=== PATIENT | female | born 1945 | race Caucasian/White ===

== ENCOUNTER 2017-02-12 08:00 | Outpatient (RCR) | payer MEDICARE, MEDICAID ==
[2016-07-12 16:31] VITALS: BMI 28.8
--- NOTE | 2016-12-19 13:51 | CARDIAC REHAB PLAN OF CARE ---
Physician: Nevaeh KENDALL Patient is being seen: Jimmie Ramirez Medical Diagnosis: Stent x 2 Date of Initial Evaluation: 12/19/16 SHORT TERM GOALS Short Term Goals Due Date: 01/19/17 Short Term Goals: 71 year old female phase II patient comes to cardiac rehab after receiving two stents on 2016. Patient is a return cardiac rehab patient with a medical history that includes insulin dependent diabetic, a kidney disorder, previous right femoral popliteal bypass, bilateral leg claudication, "Claudication is pain and/or cramping in the lower leg due to inadequate blood flow to the muscles. The pain usually causes the person to limp. The word "claudication" comes from the Latin "claudicare" meaning to limp. Claudication typically is felt while walking, and subsides with rest." degenerative aortic valve stenosis, CVA (2012) with complete recovery, [place] (2008 ), CABG x 3 (2008), and the patient believes she has had a total of 5-6 stents placed counting the last two. Patient will begin a 36 visit phase II program with exercise of goals of 150 minutes per week of a moderate level (3.0-6.0 MET's) of cardio exercise and also include weight resistance type of exercise at least twice a week. Patient will also follow a healthy diet, with calorie control to allow for some weight loss. Patient is 4' 9 1/2" and 139 pounds, with a healthy BMI max weight at 120 pounds. Short Term Goals Met: Short Term Goals Not Met Due To: SKILLED NURSING GOALS Group Home Goal Due Date: 02/18/17 Central Sterile Technician Goals: FPC goals for patient are to maintain that consistency of cardio exercise each week, along with weight resistance exercise and healthy meals. Patient will work to improve endurance, duration, and strength during the phase II program. Central Sterile Technician Goals Met: Group Home Goals Not Met Due To: PATIENT'S GOALS Patient Goals Due Date: 01/19/17 Patient Goals: Patient goals are to lose weight, feel better, improve strength and have more energy. Patient Goals Met: Patient Goals Not Met Due To: Cardiac Rehabilitation Plan of Care Comment: Cardiac Rehab staff will monitor, record, and evaluate vitals, ECG, and exercise results to provide the best plan of care for the patient throughout the 36 visit phase program. CR staff will educate and motivate the patient during visits for rehab. ELEND
[2016-12-23 13:04] VITALS: BP 90/64
[2016-12-23 13:05] VITALS: BP 92/58
[2016-12-25 13:11] VITALS: BP 96/54
[2016-12-25 13:12] VITALS: BP 90/50
[2016-12-30 17:20] VITALS: BP 98/60
[2016-12-30 17:21] VITALS: BP 92/52
[2017-01-01 18:04] VITALS: BP 102/64
[2017-01-01 18:05] VITALS: BP 104/54
[2017-01-06 13:17] VITALS: BP 102/62
[2017-01-06 13:18] VITALS: BP 90/48
[2017-01-13 17:40] VITALS: BP 108/54
[2017-01-13 17:41] VITALS: BP 98/50
[2017-01-20 12:56] VITALS: BP 110/62
[2017-01-20 12:57] VITALS: BP 94/60
--- NOTE | 2017-01-21 13:30 | CARDIAC REHAB PLAN OF CARE ---
Physician: Nevaeh KENDALL Patient is being seen: Jimmie Ramirez Medical Diagnosis: Stent x 2 Date of Initial Evaluation: 12/23/2016 SHORT TERM GOALS Short Term Goals Due Date: 02/20/17 Short Term Goals: 71 year old female phase II patient comes to cardiac rehab after receiving two stents on 2016. Patient is a return cardiac rehab patient with a medical history that includes insulin dependent diabetic, a kidney disorder, previous right femoral popliteal bypass, bilateral leg claudication, "Claudication is pain and/or cramping in the lower leg due to inadequate blood flow to the muscles. The pain usually causes the person to limp. The word "claudication" comes from the Latin "claudicare" meaning to limp. Claudication typically is felt while walking, and subsides with rest." degenerative aortic valve stenosis, CVA (2012) with complete recovery, [place] (2008 ), CABG x 3 (2008), and the patient believes she has had a total of 5-6 stents placed counting the last two. Patient will begin a 36 visit phase II program with exercise of goals of 150 minutes per week of a moderate level (3.0-6.0 MET's) of cardio exercise and also include weight resistance type of exercise at least twice a week. Patient will also follow a healthy diet, with calorie control to allow for some weight loss. Patient is 4'9 1/2" and 139 pounds, with a healthy BMI max weight at 120 pounds. Short Term Goals Met: Patient has completed seven visits to cardiac rehab and tolerates 35 minutes on the NuStep, at a 2.5 MET level. During exercise SPO2 values remain in the 90's on room air and the classroom monitor shows a NSR without ectopy and heart rates up to 80's. Short Term Goals Not Met Due To: The first month of the phase II program and the patients number of visits has been sporatic and only 7 visits. The intensity level is only 2.5 METs and her heart level is at the low end of her target heart rate zone. COMMUNITY SUPPORT ASSOCIATE GOALS Guide Foreign Tour Goal Due Date: 03/23/17 Guide Foreign Tour Goals: detention goals for this patient are to increase that consistency of cardio exercise each week to achieve that goal of 150 minutes at a moderate level (3.0-6.0 METs). Guide Foreign Tour Goals Met: Patient will need to make visits for rehab more frequent and also improve intensity level to see better health improvements from exercise. Guide Foreign Tour Goals Not Met Due To: PATIENT'S GOALS Patient Goals Due Date: 02/20/17 Patient Goals: Patient goals remain to lose weight, improve health, and overall energy level. Patient Goals Met: Patient Goals Not Met Due To: Cardiac Rehabilitation Plan of Care Comment: Cardiac rehab staff will continue to monitor, record, and evaluate vitals, ECG, and exercise results to provide the best plan of care throughout the phase II program. CR staff will educate and motivate the patient during visits for rehab. GRETTA
[2017-01-22 13:09] VITALS: BP 110/64
[2017-01-22 13:10] VITALS: BP 98/56
[2017-01-24 17:42] VITALS: BP 104/60
[2017-01-24 17:43] VITALS: BP 102/56
[2017-01-27 17:23] VITALS: BP 110/64
[2017-01-27 17:24] VITALS: BP 110/64
[2017-02-03 12:55] VITALS: BP 112/60
[2017-02-03 12:56] VITALS: BP 102/58
[2017-02-05 13:03] VITALS: BP_SYST 100; BP_SYST 104; BP_DIAS 50; BP_DIAS 56
[2017-02-10 13:17] VITALS: BP 100/70
[2017-02-10 13:18] VITALS: BP 108/74
[~2017-02-12 08:00] MED LIST: ABX FOR UTI PO; ACE3 PO; ACE500 PO; ACET-1748 PO; ACET-1966 PO; AGGRENOX PO; AML5 PO; AMLO-96 PO; AMOX-556 PO; ASCO-440 PO; ASCO-504 PO; ASCO500C9 PO; ASPI-1471 PO; ASPI-715 PO; ASPI-764 PO; ATOR40TA24 PO; ATR80PT PO; B6; BACDS PO; BIS10S PR; CALC-734 PO; CALC500T6 PO; CAR3.125 PO; CEF300 PO; CEPH-13 PO; CEPH500C24 PO; CILO50TA PO; CIP500 PO; CIPR-212 PO; CIPR-344 PO; CIPR-345 PO; CLO75 PO; CLOP75TA PO; CLOP75TA43 PO; CRAN1000 PO; CYAN100T31 PO; CYAN250T15 PO; Cephalexin Monohydrate PO; Cyanocobalamin PO; DAR100 PO; DIA5 PO; DICY10CA62 PO; DIFLUCAN; DILT300C41 PO; DOCU-202 PO; DOCU100C49 PO; ELESTATPT OP; ELESTATPT OU; EZET1TAB61 PO; FAMO20TA28 PO; FERR160T25 PO; FERR256T PO; FERR55TA2 PO; FURO-45; FURO-45 PO; FURO-47 PO; GAB300 PO; GABA-1 PO; GABA-549 PO; GLI2 PO; GLIBURIDE PO; GLIP-137 PO; GLIP-152 PO; GLIP10TA26 PO; GLY25 PO; Glipizide PO; HYDR-2946 PO; HYDR-2966 PO; HYDR-4305 PO; HYDR-4309 PO; HYDR12.558 PO; INSU100C10 SQ; INSU100C14 SQ; INSU100I30 SUBQ; ISOS30TA51 PO; ISOS30TA71 PO; KET10 PO; LACT PO; LACT1CAP4 PO; LACT1CAP6 PO; LACT1TAB19; LANI SQ; LANI SUBQ; LEV500 PO; LEV75 PO; LEVO-85 PO; LEVO150T7 PO; LEVO50 PO; LEVO50TA80 PO; LEVO50TA86; LEVO75TA73 PO; LID5T TP; LISI-346 PO; LISI-362 PO; LISI5TAB25 PO; LOR5 PO; LOR5/325 PO; MEPE50TA29 PO; MET500 PO; METF-409 PO; METF-420 PO; METO-259 PO; METO-733 PO; METO25TA23 PO; METO50TA19 PO; MIR PO; MOM PO; NAP375 PO; NIT4 SL; NITR-105 PO; NITR-57 PO; NOR25 PO; NOR5/325 PO; OMEP40CA48 PO; ONDA4TAB PO; ONDA4TAB9 FT; OSEL75CA PO; OXYB10TA16 PO; OXYB10TA21 PO; OXYB5TAB86 PO; OXYC-865 PO; OXYC5TAB38 PO; PAN40 PO; PANT40TA63 PO; PANT40TA65 PO; PEN400 PO; PHEN-530 PO; PHEN200T32 PO; PHENA200 PO; PSYL0.5241 PO; PSYP PO; PYRI100T57 PO; RIV10 PO; ROPI0.5T25 PO; ROPI1TAB36 PO; SACC250C6; SIMV-42 PO; SIMV-54 PO; SITA100T PO; SOLI10TA8 PO; TRAM-420 PO; TRAZ-133 PO; TUM500 PO; UBIQ100C3 PO; VALS160T20 PO; WAR1 PO; WARF4TAB46 PO; XANAX; ZIN220 PO; ZINC50TA71 PO; [UNRECOGNIZED DRUG - CODE] PO; [UNRECOGNIZED DRUG - CODE] PO; [UNRECOGNIZED DRUG - CODE] PO; [UNRECOGNIZED DRUG - OTHER]; [UNRECOGNIZED DRUG - OTHER]; [UNRECOGNIZED DRUG - OTHER] TP
[2017-02-12 13:11] VITALS: BP 100/70
[2017-02-12 13:12] VITALS: BP 102/68
[2017-02-23] MEDS ORDERED: IPRA3AMP21 IH (13:22)
[2017-02-23] MEDS ORDERED: AZIT-18 PO (13:22)
[2017-02-23] MEDS ORDERED: PRED20TA6 PO (13:22)
--- NOTE | 2017-02-26 12:59 | CARDIAC REHAB PLAN OF CARE ---
Physician: Nevaeh KENDALL Patient is being seen: Jimmie Ramirez Medical Diagnosis: Stent x 2 Date of Initial Evaluation: 12/23/16 SHORT TERM GOALS Short Term Goals Due Date: 03/29/17 Short Term Goals: 71 year old female phase II patient comes to cardiac rehab after receiving two stents on 2016. Patient is a return cardiac rehab patient with a medical history that includes insulin dependent diabetic, a kidney disorder, previous right femoral popliteal bypass, bilateral leg claudication, "Claudication is pain and/or cramping in the lower leg due to inadequate blood flow to the muscles. The pain usually causes the person to limp. The word "claudication" comes from the Latin "claudicare" meaning to limp. Claudication typically is felt while walking, and subsides with rest." degenerative aortic valve stenosis, CVA (2012) with complete recovery, [place] (2008 ), CABG x 3 (2008), and the patient believes she has had a total of 5-6 stents placed counting the last two. Patient will begin a 36 visit phase II program with exercise of goals of 150 minutes per week of a moderate level (3.0-6.0 MET's) of cardio exercise and also include weight resistance type of exercise at least twice a week. Patient will also follow a healthy diet, with calorie control to allow for some weight loss. Patient is 4'9 1/2" and 139 pounds, with a healthy BMI max weight at 120 pounds. Short Term Goals Met: Patient has made 14 visits for cardiac rehab and tolerates 37 minutes on the NuStep at a 2.7 MET level, followed by weight resistance exercise with 2 pound dumbbells. Short Term Goals Not Met Due To: Inconsistent attendance, and small improvements in duration, but without any improvement in intensity. MET level remains at 2.7. LONG-TERM GOALS Esthetic Dermatologist Goal Due Date: 04/29/17 Esthetic Dermatologist Goals: shelter goals for this patient are to improve consistency of exercise and to achieve the minimum of 150 minutes of a moderate level of cardio exercise. Alf Goals Met: Patient has improved duration of exercise with 37 minutes, but the intensity level is below the minimum goal of 3.0 METs. Esthetic Dermatologist Goals Not Met Due To: Number of minutes each week of cardio exercise and is below the moderate level of intensity. PATIENT'S GOALS Patient Goals Due Date: 03/29/17 Patient Goals: Patient goals remain to improve health and remain active. Patient Goals Met: Patient Goals Not Met Due To: Cardiac Rehabilitation Plan of Care Comment: Cardiac rehab staff will continue to monitor, record, and evaluate vitals, ECG, and exercise results to provide the best plan of care for the patient during the 36 visit phase II program. CR staff will educate and motivate the patient during visits for rehab. GRETTA
== END 2017-03-19 ==
LOC: CARD 08:00
PROVIDERS: ATTEND Internal Medicine Cardiovascular Disease
DX: I25.2 Old myocardial infarction (principal); Z79.4 Long term (current) use of insulin; N28.9 Disorder of kidney and ureter, unspecified; I73.9 Peripheral vascular disease, unspecified; I35.0 Nonrheumatic aortic (valve) stenosis; Z86.73 Personal history of transient ischemic attack (TIA), and cerebral infarction without residual deficits; Z95.5 Presence of coronary angioplasty implant and graft; E11.9 Type 2 diabetes mellitus without complications
CPT/HCPCS: 93798

== ENCOUNTER 2017-05-12 08:49 | Observation (INO) | payer MEDICARE, MEDICAID ==
[~2017-05-12] VITALS: Ht 144.8 cm; Wt 63.0 kg
[~2017-05-12 08:49] MED LIST changes: +AZIT-18 PO; +IPRA3AMP21 IH; -LEVO50TA86; +LEVO50TA86 PO; +PRED20TA6 PO
--- NOTE | 2017-05-12 08:59 | ER Report ---
History and Physical Time Seen By MD: 08:58 Hx. of Stated Complaint: DEVELOPED 9/10 CHEST PAIN WHILE EXERTING AT CARDIO REHAB. REPORTS THAT PAIN HAS SUBSIDED WHILE AT REST. HPI/ROS CHIEF COMPLAINT: Chest pain HISTORY OF PRESENT ILLNESS: 71-year-old female with stents placed in March of this year number equals 2, triple bypass in 2008, known angina and uses nitroglycerin at home for her angina, presents with chest pain onset during exertion while at cardiac rehabilitation Center that resolved after exertion stopped. No pain at this time while at rest. Pain was sharp left-sided pleuritic nonradiating and did not migrate. She reports no associated symptoms. She denies diaphoresis shortness of breath and nausea. No abdominal pain. She did not take nitroglycerin for the pain today. She reports a history of prior blood clots. REVIEW OF SYSTEMS: Constitutional: No fever, no chills. Eyes: No discharge. ENT: No sore throat. Cardiovascular: no palpitations. Respiratory: No cough, no shortness of breath. Gastrointestinal: No abdominal pain, no vomiting. Genitourinary: No hematuria. Musculoskeletal: No back pain. Skin: No rashes. Neurological: No headache. Allergies: Coded Allergies: fluoxetine (Verified Allergy, Mild, 05/12/17) sulfamethoxazole (Verified Adverse Reaction, Severe, PT STATES AFFECTED KIDNEYS, 05/12/17) trimethoprim (Verified Adverse Reaction, Severe, PT STATES AFFECTED KIDNEYS, 05/12/17) ertapenem (Verified Adverse Reaction, Intermediate, 05/12/17) messed with my liver and made me really sick oxycodone (Verified Adverse Reaction, Mild, FEELS REAL WEIRD, 05/12/17) Home Meds Active Scripts Ipratropium/Albuterol Sulfate (IPRAT-ALBUT 0.5-3(2.5) MG/3 ML) 3 Ml Ampul.neb, 3 ML IH QID Y for prn, #1 BOX Prov:ANTHONY TOM PA-C 02/23/17 Insulin Aspart (NOVOLOG) 100 Unit/1 Ml Cartridge, 3 UNIT SQ ACHS for 30 Days, Prov:JAQUELIN BRITO MD 07/13/16 Insulin Glargine (LANTUS) 100 Unit/Ml Soln, 15 UNIT SUBQ QDAY for 30 Days, Prov:JAQUELIN BRITO MD 07/13/16 Reported Medications Metoprolol Succinate (METOPROLOL SUCCINATE) 50 Mg Tab.er.24h, 1 TAB PO QDAY, TAB 07/11/16 Levothyroxine Sodium (LEVOTHYROXINE SODIUM) 50 Mcg Tablet, #30 07/11/16 Ascorbic Acid (VITAMIN C) 1,000 Mg Tab.chew, 1000 MG PO TID, TAB.CHEW 07/11/16 Cilostazol (CILOSTAZOL) 50 Mg Tablet, 50 MG PO BID 07/11/16 Pentoxifylline (PENTOXIFYLLINE) 400 Mg Tabsr, 400 MG PO TID 05/05/16 Sitagliptin Phosphate (JANUVIA) 100 Mg Tablet, 100 MG PO QDAY 05/05/16 Pantoprazole Sodium (PANTOPRAZOLE SODIUM) 40 Mg Tablet.dr, 40 MG PO QDAY, TAB.SR 04/11/15 Atorvastatin Calcium (LIPITOR) 40 Mg Tablet, 1 TAB PO QDAY, TAB 04/11/15 Lisinopril (LISINOPRIL) 5 Mg Tablet, 5 MG PO QDAY, TAB 04/11/15 Clopidogrel Bisulfate (PLAVIX) 75 Mg Tablet, 1 TAB PO QDAY TAKE ONE TABLET BY MOUTH EVERY DAY 07/13/14 Aspirin (ASPIR 81) 81 Mg Tablet.dr, 81 MG PO QDAY, TAB 07/13/14 Discontinued Scripts Prednisone (PREDNISONE) 20 Mg Tablet, 20 MG PO BID, #10 TAB Prov:ANTHONY TOM PA-C 02/23/17 Azithromycin 250 Mg Tab (AZITHROMYCIN 250 MG TAB) 250 Mg Tablet, 1 TAB PO QDAY, #6 TAB Take 2 tabs today and then 1 tab a day until gone. Prov:ANTHONY TOM PA-C 02/23/17 Hx Smoking: No Smoking Status: Former Smoker Exposure to Second Hand Smoke?: No Hx Substance Use Disorder: No Hx Alcohol Use: No Constitutional Vital Sign - Last 24 Hours 05/12/17 05/12/17 05/12/17 05/12/17 08:53 09:00 09:30 10:00 Temp 97.9 Pulse 69 56 Resp 16 16 13 B/P (MAP) 168/92 165/80 (108) 167/67 (100) 153/86 (108) Pulse Ox 91 91 94 O2 Delivery Room Air Physical Exam General Appearance: The patient is alert, has no immediate need for airway protection and no signs of toxicity. No acute distress no diaphoresis Eyes: Pupils equal and round no pallor or injection. ENT, Mouth: Mucous membranes are moist. Respiratory: There are no retractions, lungs are clear to auscultation. Cardiovascular: Regular rate and rhythm. No murmurs gallops or rubs Gastrointestinal: Abdomen is soft and non tender, no masses, bowel sounds normal. Neurological: Normal Skin: Warm and dry, no rashes. Musculoskeletal: Neck is supple non tender. Extremities are nontender, nonswollen and have full range of motion. No edema DIFFERENTIAL DIAGNOSIS: After history and physical exam differential diagnosis was considered for ACS, PE, angina, unstable angina, pleurisy, pneumonia, aortic dissection, aortic aneurysm. This is an incomplete list of diagnoses considered Medical Decision Making Data Points Result Diagram: 05/12/17 0900 05/12/17 0900 Laboratory Hematology Test 05/12/17 09:00 Red Blood Count 4.73 M/uL (4.17-5.56) Mean Corpuscular Volume 91.8 fL (80.0-96.0) Mean Corpuscular Hemoglobin 31.5 pg (26.0-33.0) Mean Corpuscular Hemoglobin Concent 34.4 g/dL (32.0-36.0) Red Cell Distribution Width 15.0 % (11.5-14.5) Mean Platelet Volume 7.2 fL (7.2-11.1) Neutrophils (%) (Auto) 63.3 % (39.4-72.5) Lymphocytes (%) (Auto) 26.0 % (17.6-49.6) Monocytes (%) (Auto) 8.0 % (4.1-12.4) Eosinophils (%) (Auto) 2.1 % (0.4-6.7) Basophils (%) (Auto) 0.6 % (0.3-1.4) Nucleated RBC Relative Count (auto) 0.0 /100WBC Neutrophils # (Auto) 5.2 K/uL (2.0-7.4) Lymphocytes # (Auto) 2.2 K/uL (1.3-3.6) Monocytes # (Auto) 0.7 K/uL (0.3-1.0) Eosinophils # (Auto) 0.2 K/uL (0.0-0.5) Basophils # (Auto) 0.1 K/uL (0.0-0.1) Nucleated RBC Absolute Count (auto) 0.00 K/uL Sodium Level 138 mmol/L (137-145) Potassium Level 4.1 mmol/L (3.5-5.0) Chloride Level 104 mmol/L (98-107) Carbon Dioxide Level 22 mmol/L (22-31) Blood Urea Nitrogen 32 mg/dl (7-18) Creatinine 1.20 mg/dl (0.52-1.04) Glomerular Filtration Rate Calc 44.2 Random Glucose 231 mg/dl (75-110) Calcium Level 9.5 mg/dl (8.4-10.2) Total Bilirubin 0.7 mg/dl (0.2-1.3) Aspartate Amino Transf (AST/SGOT) 29 U/L (0-35) Alanine Aminotransferase (ALT/SGPT) 37 U/L (0-56) Alkaline Phosphatase 118 U/L (0-126) Troponin I 0.026 ng/ml B-Type Natriuretic Peptide 49 pg/ml (0-100) Total Protein 7.5 gm/dl (6.3-8.2) Albumin 4.1 g/dl (3.5-5.0) Chemistry Test 05/12/17 09:00 White Blood Count 8.3 k/uL (4.5-11.0) Red Blood Count 4.73 M/uL (4.17-5.56) Hemoglobin 14.9 g/dL (12.0-16.0) Hematocrit 43.4 % (34.0-47.0) Mean Corpuscular Volume 91.8 fL (80.0-96.0) Mean Corpuscular Hemoglobin 31.5 pg (26.0-33.0) Mean Corpuscular Hemoglobin Concent 34.4 g/dL (32.0-36.0) Red Cell Distribution Width 15.0 % (11.5-14.5) Platelet Count 218 K/uL (150-450) Mean Platelet Volume 7.2 fL (7.2-11.1) Neutrophils (%) (Auto) 63.3 % (39.4-72.5) Lymphocytes (%) (Auto) 26.0 % (17.6-49.6) Monocytes (%) (Auto) 8.0 % (4.1-12.4) Eosinophils (%) (Auto) 2.1 % (0.4-6.7) Basophils (%) (Auto) 0.6 % (0.3-1.4) Nucleated RBC Relative Count (auto) 0.0 /100WBC Neutrophils # (Auto) 5.2 K/uL (2.0-7.4) Lymphocytes # (Auto) 2.2 K/uL (1.3-3.6) Monocytes # (Auto) 0.7 K/uL (0.3-1.0) Eosinophils # (Auto) 0.2 K/uL (0.0-0.5) Basophils # (Auto) 0.1 K/uL (0.0-0.1) Nucleated RBC Absolute Count (auto) 0.00 K/uL Glomerular Filtration Rate Calc 44.2 Calcium Level 9.5 mg/dl (8.4-10.2) Total Bilirubin 0.7 mg/dl (0.2-1.3) Aspartate Amino Transf (AST/SGOT) 29 U/L (0-35) Alanine Aminotransferase (ALT/SGPT) 37 U/L (0-56) Alkaline Phosphatase 118 U/L (0-126) Troponin I 0.026 ng/ml B-Type Natriuretic Peptide 49 pg/ml (0-100) Total Protein 7.5 gm/dl (6.3-8.2) Albumin 4.1 g/dl (3.5-5.0) EKG/Imaging EKG Interpretation 05/12/2017 8:53 AM: EKG my read sinus bradycardia with sinus arrhythmia ventricular rate of 58 normal MS QRS and QTc intervals T-wave inversion 1 in aVL is seen on prior EKG and appears similar dated 02/23/2017 at 1300. ED Course/Re-evaluation ED Course Discussed with Dr. Yarbrough who agrees with plan for admission. No chest pain at this time 05/12/2017 11:22:22 am Decision to Disposition Date: May 12, 2017 Decision to Disposition Time: 11:22 Depart Departure Latest Vital Signs Vital Signs Date Time Temp Pulse Resp B/P (MAP) Pulse Ox O2 Delivery O2 Flow Rate FiO2 05/12/17 10:00 153/86 (108) 05/12/17 09:30 56 13 94 05/12/17 08:53 97.9 Room Air Impression: Primary Impression: Chest pain, exertional Condition: Improved Disposition: Admitted from ER Referrals: CHANDRIKA ZUNIGA DO (PCP) YVES HUTCHINS MD May 12, 2017 08:59
[2017-05-12] MEDS ORDERED: ASPIRIN 81 MG CHEW PO ONE (09:00)
--- NOTE | 2017-05-12 09:03 | EKG ---
FACILITY: [facility] PATIENT NAME: LLOYD NEWTON : [id number] MR: [id number] V: [id number] EXAM DATE: ORDERING PHYSICIAN: YVES HUTCHINS TECHNOLOGIST: JORDAN Jj Reason : CHEST PRESSURE Blood Pressure : / mmHG Vent. Rate : 058 BPM Atrial Rate : 058 BPM P-R Int : 144 ms QRS Dur : 074 ms QT Int : 454 ms P-R-T Axes : 043 010 142 degrees QTc Int : 445 ms Sinus bradycardia with sinus arrhythmia Cannot rule out Anterior infarct , age undetermined ST and T wave abnormality, consider lateral ischemia Abnormal ECG When compared with ECG of 23-FEB-2017 13:00, No significant change was found Confirmed by NAVDEEP NAM ([id number]) on 05/13/2017 4:07:50 AM Referred By: LISET Confirmed By:NAVDEEP NAM
[2017-05-12 09:10] LABS: PLATELET COUNT, AUTOMATED 218 K/uL (150-450)
--- NOTE | 2017-05-12 09:39 | RADIOLOGY IMAGING REPORT ---
FACILITY: [facility] PATIENT NAME: Donna Arreola : 1945 MR: [id number] V: [id number] EXAM DATE: ORDERING PHYSICIAN: YVES HUTCHINS TECHNOLOGIST: Location: [facility] Patient: Donna Arreola : 1945 Visit/Account:[id number] Date of Sevice: 05/12/2017 Exam type: CHEST SINGLE AP History: wheezing, dyspnea; for edema pain in left chest Comparison: February 23, 2017. Findings: The lungs are free of acute effusions, infiltrates or edema. There is no evidence of pneumothorax or pneumomediastinum. The cardiac silhouette is normal in size. IMPRESSION: 1. No acute cardiopulmonary process seen Report Dictated By: Jane Ochoa MD at 05/12/2017 9:32 AM Report E-Signed By: Jane Ochoa MD at 05/12/2017 9:34 AM WSN:JOSE GUADALUPE
[2017-05-12 12:25] VITALS: BP 177/74
[2017-05-12] MEDS ORDERED: ISOS30TA54 PO (12:49)
[2017-05-12] MEDS ORDERED: LEVO75TA73 PO (12:49)
--- NOTE | 2017-05-12 12:59 | History & Physical ---
History of Present Illness Chief Complaint Chest pain History of Present Illness She presented to the emergency room after experiencing chest pain at cardiac rehab. Her pain started with exercise and was relieved by rest. She has a history of coronary artery disease, with stents placed in March. History Problems: (1) CAD (coronary artery disease) Status: Chronic (2) HTN (hypertension) Status: Chronic (3) Type II diabetes mellitus Status: Chronic (4) Hypothyroid Status: Chronic (5) CKD (chronic kidney disease) Status: Chronic (6) Peripheral vascular disease due to secondary diabetes Status: Chronic (7) Hx of CABG Status: Chronic (8) S/P femoral-popliteal bypass surgery Status: Chronic Home Meds Active Scripts Ipratropium/Albuterol Sulfate (IPRAT-ALBUT 0.5-3(2.5) MG/3 ML) 3 Ml Ampul.neb, 3 ML IH QID Y for prn, #1 BOX Prov:ANTHONY TOM PA-C 02/23/17 Insulin Aspart (NOVOLOG) 100 Unit/1 Ml Cartridge, 3 UNIT SQ ACHS for 30 Days, Prov:JAQUELIN BRITO MD 07/13/16 Insulin Glargine (LANTUS) 100 Unit/Ml Soln, 15 UNIT SUBQ QDAY for 30 Days, Prov:JAQUELIN BRITO MD 07/13/16 Reported Medications Metoprolol Succinate (METOPROLOL SUCCINATE) 50 Mg Tab.er.24h, 1 TAB PO QDAY, TAB 07/11/16 Levothyroxine Sodium (LEVOTHYROXINE SODIUM) 50 Mcg Tablet, #30 07/11/16 Ascorbic Acid (VITAMIN C) 1,000 Mg Tab.chew, 1000 MG PO TID, TAB.CHEW 07/11/16 Cilostazol (CILOSTAZOL) 50 Mg Tablet, 50 MG PO BID 07/11/16 Pentoxifylline (PENTOXIFYLLINE) 400 Mg Tabsr, 400 MG PO TID 05/05/16 Sitagliptin Phosphate (JANUVIA) 100 Mg Tablet, 100 MG PO QDAY 05/05/16 Pantoprazole Sodium (PANTOPRAZOLE SODIUM) 40 Mg Tablet.dr, 40 MG PO QDAY, TAB.SR 04/11/15 Atorvastatin Calcium (LIPITOR) 40 Mg Tablet, 1 TAB PO QDAY, TAB 04/11/15 Lisinopril (LISINOPRIL) 5 Mg Tablet, 5 MG PO QDAY, TAB 04/11/15 Clopidogrel Bisulfate (PLAVIX) 75 Mg Tablet, 1 TAB PO QDAY TAKE ONE TABLET BY MOUTH EVERY DAY 07/13/14 Aspirin (ASPIR 81) 81 Mg Tablet.dr, 81 MG PO QDAY, TAB 07/13/14 Discontinued Scripts Prednisone (PREDNISONE) 20 Mg Tablet, 20 MG PO BID, #10 TAB Prov:ANTHONY TOM PA-C 02/23/17 Azithromycin 250 Mg Tab (AZITHROMYCIN 250 MG TAB) 250 Mg Tablet, 1 TAB PO QDAY, #6 TAB Take 2 tabs today and then 1 tab a day until gone. Prov:ANTHONY TOM PA-C 02/23/17 Allergies: Coded Allergies: fluoxetine (Verified Allergy, Mild, 05/12/17) sulfamethoxazole (Verified Adverse Reaction, Severe, PT STATES AFFECTED KIDNEYS, 05/12/17) trimethoprim (Verified Adverse Reaction, Severe, PT STATES AFFECTED KIDNEYS, 05/12/17) ertapenem (Verified Adverse Reaction, Intermediate, 05/12/17) messed with my liver and made me really sick oxycodone (Verified Adverse Reaction, Mild, FEELS REAL WEIRD, 05/12/17) Patient History: Diabetes mellitus in brother BROTHER OR SISTER Diabetes mellitus in mother MOTHER, Diabetes mellitus in sister BROTHER OR SISTER FH: PR (myocardial infarction) BROTHER OR SISTER FH: seizures FATHER, FHx: cancer of ovary BROTHER OR SISTER PR (myocardial infarction) BROTHER OR SISTER Hx Smoking: No Smoking Status: Former Smoker Exposure to Second Hand Smoke?: No Caffeine Intake: Coffee, Tea Caffeine/Cups Per Day: 1 Hx Alcohol Use: No Hx Substance Use Disorder: No Social Drug Use: Never Review of Systems All Systems Reviewed/Normal: Yes, Except as Noted Cardiovascular: Chest Pain Exam Vital Signs Vital Signs Date Time Temp Pulse Resp B/P (MAP) Pulse Ox O2 Delivery O2 Flow Rate FiO2 05/12/17 12:25 97.6 51 16 177/74 (108) 91 Room Air General Appearance: Alert, Awake, No Acute Distress, Afebrile Cardiovascular: Regular Rate and Rhythm Respiratory: No Respiratory Distress Extremities: No Edema Psych: Alert & Oriented X3, Appropriate Mood & Affect Medical Decision Making Data Points Result Diagram: 05/12/17 0900 05/12/17 0900 Item Value Date Time Troponin I 0.026 ng/ml 05/12/17 0900 EKG / Imaging EKG Interpretation Ekg Reviewed. Imaging Chest X-ray Reviewed Assessment and Plan Problems: (1) Chest pain Status: Acute Assessment & Plan: She did present with exertional chest pain that relieved spontaneously with rest. Her EKG showed T wave changes in the lateral leads, but her initial troponin was negative. She did receive an aspirin in the emergency room. We will perform serial troponin monitoring. (2) CAD (coronary artery disease) Status: Chronic Assessment & Plan: She had stents placed in March. Her multiple knife edge trimmer operator is Dr Schaffer. She is on chronic treatment with Atorvastatin, Aspirin, Plavix, Metoprolol, and Nitro. (3) Type II diabetes mellitus Status: Chronic Assessment & Plan: She is on chronic treatment with Lantus, Januvia, Novolog. (4) Hypothyroid Status: Chronic Assessment & Plan: She is on rotating dose of Levothyroxine 50 and 75 mcg. Copies to: CHANDRIKA ZUNIGA DO; RK SCHAFFER MD Venous Thromboembolism Antithrombotics Is Pt On Any Antithrombotics?: No Heart Failure Ejection Fraction %: 65 NYHA Class: I Is Patient on CUATE Inhibitor?: Yes Is Patient on Beta Edgar?: No Admission Weight: 125 Exam Sepsis Risk: No Definite Risk NAVDEEP NAM DO May 12, 2017 12:59
[2017-05-12] MEDS ORDERED: INSU100C14 SQ (13:13)
[2017-05-12] MEDS: CLOPIDOGREL BISULFATE 75MG TAB PO SCH (13:38)
[2017-05-12] MEDS: METOPROLOL SUCC XL 50 MG TABCR 50 MG TAB.ER.24H PO SCH (13:39)
[2017-05-12] MEDS: ISOSORBIDE MONONITR 30MG TABCR PO SCH (13:39)
[2017-05-12] MEDS: INSULIN HUM LISPRO 100 UN/ML 3 ML VIAL SUBQ PRN (17:19)
[2017-05-12] MEDS: INSULIN ASPART 100 U/ML 3 ML PEN SUBQ SCH (17:19)
[2017-05-12 18:48] VITALS: BP 144/53
[2017-05-12] MEDS: CILOSTAZOL 100 MG TAB PO SCH (21:18)
[2017-05-12 23:02] VITALS: BP 146/49
[2017-05-13] VITALS (7 sets, daily range): BP systolic 101–147; BP diastolic 37–73; Ht 144.8 cm; Wt 63.0 kg
[2017-05-13] MEDS: INSULIN ASPART 100 U/ML 3 ML PEN SUBQ SCH ×3 (08:12→17:08)
[2017-05-13] MEDS: INSULIN HUM LISPRO 100 UN/ML 3 ML VIAL SUBQ PRN ×2 (08:12→17:09)
[2017-05-13] MEDS: METOPROLOL SUCC XL 50 MG TABCR 50 MG TAB.ER.24H PO SCH (09:00)
[2017-05-13] MEDS: CLOPIDOGREL BISULFATE 75MG TAB PO SCH (09:12)
[2017-05-13] MEDS: ISOSORBIDE MONONITR 30MG TABCR PO SCH (09:12)
[2017-05-13] MEDS: ATORVASTATIN 40 MG TAB PO SCH (09:13)
[2017-05-13] MEDS: ASPIRIN 81 MG ENTERIC COATED PO SCH (09:13)
[2017-05-13] MEDS: CILOSTAZOL 100 MG TAB PO SCH ×2 (09:14→21:09)
[2017-05-13] MEDS: INSULIN GLARGINE 100 U/ML 3 ML PEN SUBQ SCH (09:14)
--- NOTE | 2017-05-13 11:50 | RADIOLOGY IMAGING REPORT ---
FACILITY: [facility] [place] PATIENT NAME: Donna Arreola : 1945 MR: [id number] V: [id number] EXAM DATE: ORDERING PHYSICIAN: JAQUELIN BRITO TECHNOLOGIST: Location: [facility] [place] Patient: Donna Arreola : 1945 Visit/Account:[id number] Date of Sevice: 05/13/2017 ABDOMEN/PELVIS W/O CONTRAST HISTORY: RLQ pain TECHNIQUE: Axial images acquired through the abdomen/pelvis. Coronal and sagittal reformatting also performed. No IV contrast administered. Dose Lowering Technique One of the following dose optimization techniques was utilized in the performance of this exam: Autom ated exposure control; adjustment of the mA and/or kV according to the patient's size; or use of an i terative reconstruction technique. Specific details can be referenced in the facility's radiology C T exam operational policy. COMPARISON: December 24, 2015 FINDINGS: Visualized lung bases: Negative. Hepatobiliary: Negative. Spleen: Negative. Adrenals: Negative. Pancreas: Atrophic pancreas. Mild calcifications are identified in the pancreatic head and tail Kidneys and bladder: Multiple calcifications are seen within the kidneys. Many of these appear to be vascular in etiology several may represent nonobstructing calculi although there is no evidence of h ydronephrosis or hydroureter. Bladder wall appears mildly thickened although may be related to under distention with urine. Genitalia: Hysterectomy GI: No evidence of bowel obstruction or bowel wall thickening . The appendix is not definitively s een although no inflammatory changes identified in the right lower quadrant Vessels/spaces/nodes: Severe vascular calcifications are again seen throughout the abdomen and pelvi s. Stents in the external iliac arteries and common femoral arteries again noted there also appears to be a stent in the proximal right renal artery Bones/soft tissues: There Is a dextroconvex scoliosis lumbar spine with extensive multilevel spondyl otic changes. Additional findings: None pertinent. IMPRESSION: Mild calcination occasions are identified in the pancreatic head and tail in the otherwise atrophic p ancreas possibly related to prior pancreatitis Multiple small calcination occasions within the kidneys. Many of these appear to be vascular in etio logy although several may represent nonobstructing calculi. The appendix is not definitively seen although no inflammatory change identified in the right lower q uadrant There are severe vascular calcifications throughout the abdomen and pelvis Dextro convex scoliosis lumbar spine with extensive multilevel spondylotic changes Report Dictated By: Jane Ochoa MD at 05/13/2017 11:16 AM Report E-Signed By: Jane Ochoa MD at 05/13/2017 11:46 AM WSN:[email or web address]
--- NOTE | 2017-05-13 11:58 | Hospitalist Progress Note ---
Subjective Progress Notes Subjective No further chest pain. However, she is reporting right groin pain that is intermittent. It lasts only a few seconds, but has been occurring frequently starting last night into today. It is 10/10 when it hits. She has had it over the last couple of months, but not this frequently or severe. Physical Exam Vital Signs Date Time Temp Pulse Resp B/P (MAP) Pulse Ox O2 Delivery O2 Flow Rate FiO2 05/13/17 11:15 97.9 63 16 138/58 (84) 92 Room Air 05/13/17 03:45 2.0 Intake and Output 05/14/17 07:00 Intake Total 440 ml Balance 440 ml Intake Oral 440 ml # Voids 1 General Appearance: Alert, Awake, No Acute Distress Cardiovascular: Regular Rate and Rhythm Respiratory: Clear to Auscultation GI: Other (R inguinal area without discoloration or bulging. She is non- tender. There is an old scar from a hernia surgery. No bulging felt with valsalva.) Result Diagram: 05/12/17 0900 05/12/17 0900 Assessment and Plan Problems: (1) Chest pain Status: Acute Assessment & Plan: She did present with exertional chest pain that relieved spontaneously with rest. No further pain. Her EKG showed T wave abnormalities in the lateral leads which is chronic, and her troponins are negative. She did receive an aspirin in the emergency room. Dr. Tafoya saw the patient and would like her to have a Lexiscan nuclear study. Will get done tomorrow. If there are significant abnormalities, then she will need a heart catheterization. (2) Right inguinal pain Status: Acute Assessment & Plan: Etiology is unclear. It lasts a few seconds. Benign exam. She does have a h/o right inguinal hernia repair. Will get a CT to evaluate. (3) CAD (coronary artery disease) Status: Chronic Assessment & Plan: She had stents placed, most recently, in March. Her pulling machine operator is Dr Tafoya. She is on chronic treatment with Atorvastatin, Aspirin, Plavix, Metoprolol, and Nitro. (4) Type II diabetes mellitus Status: Chronic Assessment & Plan: She is on chronic treatment with Lantus, Januvia, Novolog. (5) Hypothyroid Status: Chronic Assessment & Plan: She is on rotating dose of Levothyroxine 50 and 75 mcg. Heart Failure Ejection Fraction %: 65 NYHA Class: I Is Patient on CUATE Inhibitor?: Yes Is Patient on Beta Edgar?: No Admission Weight: 125 Exam Sepsis Risk: No Definite Risk JAQUELIN BRITO MD May 13, 2017 11:58
[2017-05-13] MEDS ORDERED: INFLUENZA VIRUS VAC 0.5 ML SYR IM ONLY ONE (13:00)
[2017-05-14] VITALS (8 sets, daily range): BP systolic 118–167; BP diastolic 51–109
[2017-05-14] MEDS ORDERED: REGADENOSON 0.4 MG/5 ML SYR ONE (07:07)
[2017-05-14] MEDS: INSULIN ASPART 100 U/ML 3 ML PEN SUBQ SCH ×3 (07:34→16:26)
[2017-05-14] MEDS: INSULIN HUM LISPRO 100 UN/ML 3 ML VIAL SUBQ PRN ×4 (07:34→20:35)
[2017-05-14] MEDS: ISOSORBIDE MONONITR 30MG TABCR PO SCH (10:43)
[2017-05-14] MEDS: CLOPIDOGREL BISULFATE 75MG TAB PO SCH (10:43)
[2017-05-14] MEDS: CILOSTAZOL 100 MG TAB PO SCH ×2 (10:44→20:32)
[2017-05-14] MEDS: METOPROLOL SUCC XL 50 MG TABCR 50 MG TAB.ER.24H PO SCH (10:44)
[2017-05-14] MEDS: ATORVASTATIN 40 MG TAB PO SCH (10:44)
[2017-05-14] MEDS: ASPIRIN 81 MG ENTERIC COATED PO SCH (10:44)
[2017-05-14] MEDS: INSULIN GLARGINE 100 U/ML 3 ML PEN SUBQ SCH (10:45)
--- NOTE | 2017-05-14 17:04 | RADIOLOGY IMAGING REPORT ---
FACILITY: PATIENT NAME: Donna Arreola : 1945 MR: [id number] V: [id number] EXAM DATE: ORDERING PHYSICIAN: JAQUELIN BRITO TECHNOLOGIST: Location: [facility] Patient: Donna Arreola : 1945 Visit/Account:[id number] Date of Sevice: 05/14/2017 EXAMINATION: Single isotope SPECT imaging with regadenoson infusion and gated SPECT imaging. DATE OF EXAMINATION: 05/14/2017. DATE OF INTERPRETATION: 05/14/2017. REQUESTING PHYSICIAN: JAQUELIN BRTIO. INDICATION: The patient is a 71-year-old female evaluated for chest pain, history of coronary artery disease with prior CABG. PROCEDURE: After informed consent the patient received an intravenous injection of 11.8 mCi of Tc-99 m sestamibi followed at an appropriate time interval by rest imaging. The patient then subsequently received an intravenous infusion of 0.4 mg of regadenoson per protocol without complication. Resting heart rate was 60 bpm with a peak heart rate of 81 bpm. Blood pressure at rest was 123 / 98 and fol lowing infusion was 139 / 67. Baseline EKG demonstrates normal sinus rhythm with diffuse T-wave inve rsion. There were no EKG changes of ischemia following infusion. Symptoms were nonspecific. The pa tient then received an intravenous injection of 30.6 mCi of Tc-99m sestamibi followed by stress imagi ng. RAW DATA: Examination of the summed raw data revealed a adequate quality study. MYOCARDIAL PERFUSION: The tomographic images demonstrate normal myocardial perfusion tracer uptake a t rest. There is a moderate-sized, severe intensity defect in the lateral wall on stress and prone im aging consistent with lateral ischemia transient ischemic dilation present with a ratio of 1.39. GATED IMAGES: The gated images demonstrate EF 64%. The lateral wall is mildly hypokinetic IMPRESSION: 1. Nondiagnostic pharmacologic stress ECG 2. Abnormal myocardial perfusion scan with a moderate area of ischemia in the circumflex territory 3. Preserved LV systolic function; LVEF 64%. The lateral wall is mildly hypokinetic 4. Based on the results of this exam, the patient appears to be at intermediate risk for future cardi ovascular events. 5. Results given to the nursing security supervisor, Genny, at [facility]. She will pass on t o on-call hospitalist. Report Dictated By: López Collins at 05/14/2017 4:08 PM Report E-Signed By: López Collins at 05/14/2017 4:24 PM WSN:[id number]
--- NOTE | 2017-05-14 17:39 | Hospitalist Progress Note ---
Subjective Progress Notes Subjective She reports doing well at rest. She does have dyspnea with exertion. No CP at this time. Physical Exam Vital Signs Date Time Temp Pulse Resp B/P (MAP) Pulse Ox O2 Delivery O2 Flow Rate FiO2 05/14/17 16:16 164/69 (100) 05/14/17 16:08 98.1 67 18 93 Room Air 05/13/17 03:45 2.0 Intake and Output 05/15/17 07:00 Intake Total 360 ml Balance 360 ml Intake Oral 360 ml # Voids 3 General Appearance: Alert, Awake Cardiovascular: Regular Rate and Rhythm Respiratory: Clear to Auscultation Chest: No Tenderness GI: Soft and Non-Tender Psych: Alert & Oriented X3 Result Diagram: 05/12/17 0900 05/12/17 0900 Assessment and Plan Problems: (1) Chest pain Status: Acute Assessment & Plan: She did present with exertional chest pain that relieved spontaneously with rest. MADRIGAL, but no further pain. Her EKG showed T wave abnormalities in the lateral leads which is chronic. Her troponins are negative. She did receive an aspirin in the emergency room. Dr. Tafoya saw the patient and recommended she have a Lexiscan nuclear study. We were able to get this done and she has an ischemic zone in the left circumflex area. I was able to discuss this with Dr. Tafoya again and he recommended she have a heart catheterization. Arrangements will be made for transport via ambulance to [facility] (Dr. Aureliano middleton). She would not be able to tolerate the ambulation necessary for DC from [facility] and personal transport to [facility]. (2) CAD (coronary artery disease) Status: Chronic Assessment & Plan: Her bulk filler is Dr. Wm Tafoya. She has had several interventions in the past. She has been on chronic treatment with Atorvastatin, Aspirin, Plavix, Metoprolol, and Nitrate. (3) Right inguinal pain Status: Acute Assessment & Plan: Etiology is unclear. It lasts a few seconds. Benign exam. She does have a h/o right inguinal hernia repair. CT of abdomen and pelvis was unremarkable for a cause of the groin pain. (4) Type II diabetes mellitus Status: Chronic Assessment & Plan: She is on chronic treatment with Lantus, Januvia, Novolog. (5) Hypothyroid Status: Chronic Assessment & Plan: She is on an alternating dose of Levothyroxine 50 and 75 mcg. Heart Failure Ejection Fraction %: 65 NYHA Class: I Is Patient on CUATE Inhibitor?: Yes Is Patient on Beta Edgar?: No Admission Weight: 125 Exam Sepsis Risk: No Definite Risk HITESH DING MD May 14, 2017 17:39
[2017-05-15 00:22] VITALS: BP 105/55
[2017-05-15 03:22] VITALS: BP 132/51
[2017-05-15 07:00] VITALS: BP 154/61
[2017-05-15] MEDS: INSULIN ASPART 100 U/ML 3 ML PEN SUBQ SCH (07:30)
--- NOTE | 2017-05-15 07:48 | Hospitalist Depart ---
Discharge Summary Reason for Hosp/Final Diag: (1) Chest pain Status: Acute Hospital Course & Plan: She did present with exertional chest pain that relieved spontaneously with rest. She continued to have MADRIGAL, but no further pain. Her EKG showed T wave abnormalities in the lateral leads which is chronic. Her troponins are negative. She did receive an aspirin in the emergency room. Dr. Tafoya saw the patient and recommended she have a Lexiscan nuclear study. We were able to get this done and she has an ischemic zone in the left circumflex area. I was able to discuss this with Dr. Tafoya again and he recommended she have a heart catheterization. Arrangements were made for transport via ambulance to [facility] (Dr. Aureliano middleton). She would not be able to tolerate the ambulation necessary for DC from [facility] and personal transport to [facility]. (2) CAD (coronary artery disease) Status: Chronic Hospital Course & Plan: Her oil rig driller is Dr. Clarence Tafoya. She has had several interventions in the past. She has been on chronic treatment with Atorvastatin, Aspirin, Plavix, Metoprolol, and oral Nitrate. (3) Right inguinal pain Status: Acute Hospital Course & Plan: Etiology is unclear. It lasts a few seconds. Benign exam. She does have a h/o right inguinal hernia repair. CT of abdomen and pelvis was unremarkable for a cause of the groin pain. (4) Type II diabetes mellitus Status: Chronic Hospital Course & Plan: She is on chronic treatment with Lantus, Januvia, Novolog. (5) Hypothyroid Status: Chronic Hospital Course & Plan: She is on an alternating dose of Levothyroxine 50 and 75 mcg. Departure Weight (Pounds): 138 Weight (Ounces): 14.0 Result Diagram: 05/12/1789905/12/17899 Item Value Date Time Albumin 4.1 g/dl 05/12/17899 Total Protein 7.5 gm/dl 05/12/17899 Troponin I 0.026 ng/ml 05/12/17899 Alkaline Phosphatase 118 U/L 05/12/17899 Alanine Aminotransferase (ALT/SGPT) 37 U/L 05/12/17899 Aspartate Amino Transf (AST/SGOT) 29 U/L 05/12/17899 Total Bilirubin 0.7 mg/dl 3/5/18 0900 Calcium Level 9.5 mg/dl 05/12/17 0900 B-Type Natriuretic Peptide 49 pg/ml 05/12/17 0900 Troponin I 0.030 ng/ml 05/12/17 1401 Troponin I 0.026 ng/ml 05/12/17 1903 Imaging PATIENT NAME: Donna Newton : 1945 MR: [id number] V: [id number] EXAM DATE: ORDERING PHYSICIAN: YVES HUTCHINS TECHNOLOGIST: Location: [facility] [place] Patient: Donna Newton : 1945 Visit/Account:[id number] Date of Sevice: 05/12/2017 Exam type: CHEST SINGLE AP History: wheezing, dyspnea; for edema pain in left chest Comparison: February 23, 2017. Findings: The lungs are free of acute effusions, infiltrates or edema. There is no evidence of pneumothorax or pneumomediastinum. The cardiac silhouette is normal in size. IMPRESSION: 1. No acute cardiopulmonary process seen Report Dictated By: Jane Ochoa MD at 05/12/2017 9:32 AM Report E-Signed By: Jane Ochoa MD at 05/12/2017 9:34 AM WSN:[email or web address] PATIENT NAME: Donna Newton : 1945 MR: [id number] V: [id number] EXAM DATE: [id number] ORDERING PHYSICIAN: JAQUELIN BRITO TECHNOLOGIST: Location: [facility] [place] Patient: Donna Newton : 1945 Visit/Account:[id number] Date of Sevice: 05/13/2017 ABDOMEN/PELVIS W/O CONTRAST HISTORY: RLQ pain TECHNIQUE: Axial images acquired through the abdomen/pelvis. Coronal and sagittal reformatting also performed. No IV contrast administered. Dose Lowering Technique One of the following dose optimization techniques was utilized in the performance of this exam: Automated exposure control; adjustment of the mA and/ or kV according to the patient's size; or use of an iterative reconstruction technique. Specific details can be referenced in the facility's radiology CT exam operational policy. COMPARISON: December 24, 2015 FINDINGS: Visualized lung bases: Negative. Hepatobiliary: Negative. Spleen: Negative. Adrenals: Negative. Pancreas: Atrophic pancreas. Mild calcifications are identified in the pancreatic head and tail Kidneys and bladder: Multiple calcifications are seen within the kidneys. Many of these appear to be vascular in etiology several may represent nonobstructing calculi although there is no evidence of hydronephrosis or hydroureter. Bladder wall appears mildly thickened although may be related to underdistention with urine. Genitalia: Hysterectomy GI: No evidence of bowel obstruction or bowel wall thickening . The appendix is not definitively seen although no inflammatory changes identified in the right lower quadrant Vessels/spaces/nodes: Severe vascular calcifications are again seen throughout the abdomen and pelvis. Stents in the external iliac arteries and common femoral arteries again noted there also appears to be a stent in the proximal right renal artery Bones/soft tissues: There Is a dextroconvex scoliosis lumbar spine with extensive multilevel spondylotic changes. Additional findings: None pertinent. IMPRESSION: Mild calcination occasions are identified in the pancreatic head and tail in the otherwise atrophic pancreas possibly related to prior pancreatitis Multiple small calcination occasions within the kidneys. Many of these appear to be vascular in etiology although several may represent nonobstructing calculi. The appendix is not definitively seen although no inflammatory change identified in the right lower quadrant There are severe vascular calcifications throughout the abdomen and pelvis Dextro convex scoliosis lumbar spine with extensive multilevel spondylotic changes Report Dictated By: Jane Ochoa MD at 05/13/2017 11:16 AM Report E-Signed By: Jane Ochoa MD at 05/13/2017 11:46 AM WSN:[email or web address] PATIENT NAME: Donna Newton : 1945 MR: [id number] V: [id number] EXAM DATE: ORDERING PHYSICIAN: JAQUELIN BRITO TECHNOLOGIST: Location: [facility] [place] Patient: Donna Newton : 1945 Visit/Account:[id number] Date of Sevice: 05/14/2017 EXAMINATION: Single isotope SPECT imaging with regadenoson infusion and gated SPECT imaging. DATE OF EXAMINATION: 05/14/2017. DATE OF INTERPRETATION: 05/14/2017. REQUESTING PHYSICIAN: JAQUELIN BRITO. INDICATION: The patient is a 71-year-old female evaluated for chest pain, history of coronary artery disease with prior CABG. PROCEDURE: After informed consent the patient received an intravenous injection of 11.8 mCi of Tc-99m sestamibi followed at an appropriate time interval by rest imaging. The patient then subsequently received an intravenous infusion of 0.4 mg of regadenoson per protocol without complication. Resting heart rate was 60 bpm with a peak heart rate of 81 bpm. Blood pressure at rest was 123 / 98 and following infusion was 139 / 67. Baseline EKG demonstrates normal sinus rhythm with diffuse T-wave inversion. There were no EKG changes of ischemia following infusion. Symptoms were nonspecific. The patient then received an intravenous injection of 30.6 mCi of Tc-99m sestamibi followed by stress imaging. RAW DATA: Examination of the summed raw data revealed a adequate quality study. MYOCARDIAL PERFUSION: The tomographic images demonstrate normal myocardial perfusion tracer uptake at rest. There is a moderate-sized, severe intensity defect in the lateral wall on stress and prone imaging consistent with lateral ischemia transient ischemic dilation present with a ratio of 1.39. GATED IMAGES: The gated images demonstrate EF 64%. The lateral wall is mildly hypokinetic IMPRESSION: 1. Nondiagnostic pharmacologic stress ECG 2. Abnormal myocardial perfusion scan with a moderate area of ischemia in the circumflex territory 3. Preserved LV systolic function; LVEF 64%. The lateral wall is mildly hypokinetic 4. Based on the results of this exam, the patient appears to be at intermediate risk for future cardiovascular events. 5. Results given to the nursing emergency crew supervisor, Genny, at [facility] [place]. She will pass on to on-call hospitalist. Report Dictated By: López Collins at 05/14/2017 4:08 PM Report E-Signed By: López Collins at 05/14/2017 4:24 PM WSN:[id number] EKG PATIENT NAME: DONNA NEWTON : [id number] MR: [id number] V: [id number] EXAM DATE: ORDERING PHYSICIAN: YVES HUTCHINS TECHNOLOGIST: JORDAN Jj Reason : CHEST PRESSURE Blood Pressure : / mmHG Vent. Rate : 058 BPM Atrial Rate : 058 BPM P-R Int : 144 ms QRS Dur : 074 ms QT Int : 454 ms P-R-T Axes : 043 010 142 degrees QTc Int : 445 ms Sinus bradycardia with sinus arrhythmia Cannot rule out Anterior infarct , age undetermined ST and T wave abnormality, consider lateral ischemia Abnormal ECG When compared with ECG of 23-FEB-2017 13:00, No significant change was found Confirmed by NAVDEEP NAM ([id number]) on 05/13/2017 4:07:50 AM Referred By: LISET Confirmed By:NAVDEEP NAM Condition: Improved Discharge: Another Hospital ([facility]) Time Spent: > 30 min Discharge Instructions Home Meds Active Scripts Insulin Glargine (LANTUS) 100 Unit/Ml Soln, 15 UNIT SUBQ QDAY for 30 Days, Prov:JAQUELIN BRITO MD 07/13/16 Reported Medications Insulin Aspart (NOVOLOG) 100 Unit/1 Ml Cartridge, 5 UNIT SQ ACHS 05/12/17 Levothyroxine Sodium (LEVOTHYROXINE SODIUM) 75 Mcg Tablet, 75 MCG PO QODAY, TAB 05/12/17 Isosorbide Mononitrate (ISOSORBIDE MONONITRATE ER) 30 Mg Tab.er.24h, 30 MG PO DAILY 05/12/17 Metoprolol Succinate (METOPROLOL SUCCINATE) 50 Mg Tab.er.24h, 1 TAB PO QDAY, TAB 07/11/16 Levothyroxine Sodium (LEVOTHYROXINE SODIUM) 50 Mcg Tablet, 50 MCG PO QODAY, #30 07/11/16 Cilostazol (CILOSTAZOL) 50 Mg Tablet, 50 MG PO BID 07/11/16 Sitagliptin Phosphate (JANUVIA) 100 Mg Tablet, 100 MG PO QDAY 05/05/16 Atorvastatin Calcium (LIPITOR) 40 Mg Tablet, 1 TAB PO QDAY, TAB 04/11/15 Clopidogrel Bisulfate (PLAVIX) 75 Mg Tablet, 1 TAB PO QDAY TAKE ONE TABLET BY MOUTH EVERY DAY 07/13/14 Aspirin (ASPIR 81) 81 Mg Tablet.dr, 81 MG PO QDAY, TAB 07/13/14 Discontinued Reported Medications Ascorbic Acid (VITAMIN C) 1,000 Mg Tab.chew, 1000 MG PO TID, TAB.CHEW 07/11/16 Pentoxifylline (PENTOXIFYLLINE) 400 Mg Tabsr, 400 MG PO TID 05/05/16 Pantoprazole Sodium (PANTOPRAZOLE SODIUM) 40 Mg Tablet.dr, 40 MG PO QDAY, TAB.SR 04/11/15 Lisinopril (LISINOPRIL) 5 Mg Tablet, 5 MG PO QDAY, TAB 04/11/15 Discontinued Scripts Ipratropium/Albuterol Sulfate (IPRAT-ALBUT 0.5-3(2.5) MG/3 ML) 3 Ml Ampul.neb, 3 ML IH QID Y for prn, #1 BOX Prov:ANTHONY TOM PA-C 02/23/17 Prednisone (PREDNISONE) 20 Mg Tablet, 20 MG PO BID, #10 TAB Prov:ANTHONY TOM PA-C 02/23/17 Azithromycin 250 Mg Tab (AZITHROMYCIN 250 MG TAB) 250 Mg Tablet, 1 TAB PO QDAY, #6 TAB Take 2 tabs today and then 1 tab a day until gone. Prov:ANTHONY TOM PA-C 02/23/17 Insulin Aspart (NOVOLOG) 100 Unit/1 Ml Cartridge, 3 UNIT SQ ACHS for 30 Days, Prov:JAQUELIN BRITO MD 07/13/16 Diet: Diabetic Activity: No Exertion Special Instructions: She will be transferred to [facility] for further evaluation/treatment. Copies to: CHANDRIKA ZUNIGA DO Venous Thromboembolism Antithrombotics Is Pt On Any Antithrombotics?: No Heart Failure Ejection Fraction %: 65 NYHA Class: I Is Patient on CUATE Inhibitor?: Yes Is Patient on Beta Edgar?: No Admission Weight: 125 HITESH DING MD May 15, 2017 07:48
[2017-05-15] MEDS: ATORVASTATIN 40 MG TAB PO SCH (08:18)
[2017-05-15] MEDS: CLOPIDOGREL BISULFATE 75MG TAB PO SCH (08:18)
[2017-05-15] MEDS: ISOSORBIDE MONONITR 30MG TABCR PO SCH (08:18)
[2017-05-15] MEDS: METOPROLOL SUCC XL 50 MG TABCR 50 MG TAB.ER.24H PO SCH (08:18)
[2017-05-15] MEDS: ASPIRIN 81 MG ENTERIC COATED PO SCH (08:19)
[2017-05-15] MEDS: CILOSTAZOL 100 MG TAB PO SCH (08:19)
[2017-05-15] MEDS: INSULIN GLARGINE 100 U/ML 3 ML PEN SUBQ SCH (08:19)
[2017-05-15] MEDS: INSULIN HUM LISPRO 100 UN/ML 3 ML VIAL SUBQ PRN (08:20)
== END 2017-05-15 07:38 | disposition short-term general hospital (02) ==
LOC: ER 09:06 → UNDOADMIN 11:39 → MED 11:39 → INTOOBSV 11:39
PROVIDERS: ADMIT Family Medicine; ATTEND Family Medicine
DX: R07.89 Other chest pain (principal); R10.30 Lower abdominal pain, unspecified; E11.9 Type 2 diabetes mellitus without complications; E03.9 Hypothyroidism, unspecified; R06.00 Dyspnea, unspecified; I25.10 Atherosclerotic heart disease of native coronary artery without angina pectoris; I10 Essential (primary) hypertension; Z95.1 Presence of aortocoronary bypass graft; I73.9 Peripheral vascular disease, unspecified
CPT/HCPCS: 36415; 36416; 71045; 74176; 78452; 82948; 83880; 84484; 85025; 93005; 93017; 96372; 99285; A9270; A9500; G0378; J1815; J2785; 82040; 82247; 82310; 82374; 82435; 82565; 82947; 84075; 84132; 84155; 84295; 84450; 84460; 84520

== ENCOUNTER → 2017-05-15 | Outpatient (CLI) | payer MEDICARE, MEDICAID ==
[2017-05-13 12:54] VITALS: BMI 29.9
[~2017-05-15] MED LIST changes: +ISOS30TA54 PO
== END ==
LOC: AMB 08:22
PROVIDERS: ATTEND Nurse Practitioner
DX: I25.10 Atherosclerotic heart disease of native coronary artery without angina pectoris (principal); I25.89 Other forms of chronic ischemic heart disease; E11.9 Type 2 diabetes mellitus without complications; I10 Essential (primary) hypertension; R00.1 Bradycardia, unspecified
CPT/HCPCS: A0425; A0426; A0888

== ENCOUNTER 2017-07-07 08:00 | Outpatient (RCR) | payer MEDICARE, MEDICAID ==
[2016-07-12 16:31] VITALS: BMI 28.8
[2017-04-14 16:46] VITALS: BP 104/62
[2017-04-14 16:47] VITALS: BP 108/54
[2017-04-16 16:26] VITALS: BP 108/60
[2017-04-16 16:27] VITALS: BP 112/58
[2017-04-18 18:00] VITALS: BP 110/64
[2017-04-18 18:01] VITALS: BP 112/60
[2017-04-21 13:50] VITALS: BP 110/72
[2017-04-21 13:51] VITALS: BP 112/64
[2017-04-23 13:20] VITALS: BP 110/62
[2017-04-23 13:27] VITALS: BP 108/58
[2017-04-25 12:54] VITALS: BP 110/60
[2017-04-25 12:55] VITALS: BP 104/58
[2017-04-28 13:27] VITALS: BP_SYST 106; BP_SYST 108; BP_DIAS 58; BP_DIAS 60
[2017-05-05 13:24] VITALS: BP 114/64
[2017-05-05 13:25] VITALS: BP 108/58
[2017-05-07 12:32] VITALS: BP 102/70
[2017-05-07 12:33] VITALS: BP 110/64
[2017-05-09 13:15] VITALS: BP 118/56
[2017-05-09 13:16] VITALS: BP 102/60
[2017-05-12 13:22] VITALS: BP 118/58
[2017-06-16 13:21] VITALS: BP 92/62
[2017-06-16 13:22] VITALS: BP 108/64
[2017-06-18 17:31] VITALS: BP 90/60
[2017-06-18 17:32] VITALS: BP 90/64
--- NOTE | 2017-06-18 18:36 | CARDIAC REHAB PLAN OF CARE ---
Physician: Doing Patient is being seen: Jimmie Ramirez Medical Diagnosis: Stent x 2 Date of Initial Evaluation: Apr 14, 2017 SHORT TERM GOALS Short Term Goals Due Date: 07/18/17 Short Term Goals: Patient previously evaluated and had made 13 visits for cardiac rehab. On May 14, 2017 while at home patient brought by family to [facility] for evaluation of chest pain. Patient prior cardiac history includes CAD, and CABG (2008), and two stents. Evaluation at [facility] revealed abnormal myocardial perfusion scan with a moderate area of ischemia in the circumflex territory. LVEF 64%. The lateral wall is mildly hypokinetic. Patient appears to be at intermediate risk for future cardiovascular events. Patient has resumed cardiac rehab with another 7 visits and has a total of 26 visits completed. The goals remain the same with the consistency of exercise at a moderate level of 150 minutes each week along with weight resistance at least twice a week. Short Term Goals Met: Patient has made a total of 26 visits to cardiac rehab and tolerates 30 minutes of exercise at a 2.0 MET level, followed by weight resistance of 3 pound dumbbells. During exercise SPO2 levels are 89-91% and the strawhat blocking operator shows a NSR with diffuse T-wave inversion and rates of 75- 84. Short Term Goals Not Met Due To: PRISON GOALS Fpc Goal Due Date: 08/18/17 Booth Operator Goals: terminal press operator goals are to maintain consistency of exercise and consistency in heart healthy meals with proper portions. Fpc Goals Met: Patient has been able to increase duration of exercise although it is under the desired moderate level of 3.0 METs. Booth Operator Goals Not Met Due To: Patient has had hard time achieving a moderate level on exercise intensity and is consistently around 2.0 METs during the workout. PATIENT'S GOALS Patient Goals Due Date: 07/18/17 Patient Goals: Patient goals are to improve cardiac health and overall health and remain active. Patient Goals Met: Patient Goals Not Met Due To: Patients recent set back with another cardiac event in May has left her afraid to exercise and cause harm from exertion to her heart. Cardiac Rehabilitation Plan of Care Comment: Cardiac rehab staff will continue to monitor, record, and evaluate vitals, ECG, and exercise results to provide the best plan of care for the patient throughout the 36 visit phase II program. Patient has 10 visits left and CR staff will motivate and educate the patient during those visits. GRETTA
[2017-06-20 13:08] VITALS: BP 102/62
[2017-06-20 13:09] VITALS: BP 98/54
[2017-06-25 13:21] VITALS: BP 118/78
[2017-06-25 13:22] VITALS: BP 116/74
[2017-06-27 13:33] VITALS: BP 108/62
[2017-06-27 13:34] VITALS: BP 117/72
[2017-07-02 13:00] VITALS: BP 102/58
[2017-07-02 13:01] VITALS: BP 100/62
[2017-07-04 17:37] VITALS: BP_SYST 102; BP_SYST 118; BP_DIAS 62
[~2017-07-07 08:00] MED LIST changes: -PEN400 PO; +PENT400T57 PO
[2017-07-07 12:49] VITALS: BP 118/68
[2017-07-07 12:50] VITALS: BP 98/56
== END 2017-07-13 ==
LOC: CARD 08:00
PROVIDERS: ATTEND Internal Medicine Cardiovascular Disease
DX: I25.2 Old myocardial infarction (principal); Z95.5 Presence of coronary angioplasty implant and graft; I82.409 Acute embolism and thrombosis of unspecified deep veins of unspecified lower extremity
CPT/HCPCS: 93798

== ENCOUNTER 2017-07-15 10:59 | Emergency (ER) | payer MEDICARE, MEDICAID ==
[2017-05-13 12:54] VITALS: BMI 29.9
--- NOTE | 2017-07-15 11:15 | ER Report ---
History and Physical Time Seen By MD: 11:15 Hx. of Stated Complaint: Pt has been reporting right leg pain without known trauma. No SOB or chest pain but was in [place] recently and Dx with blood clot in left leg and kidney. HPI/ROS CHIEF COMPLAINT: Right leg pain HISTORY OF PRESENT ILLNESS: 71-year-old female patient presents to emergency room with complaint of right leg pain. Patient states this been going on for the past 2 weeks. She did see podiatry who felt that she had a tight tendon in her right foot. She was given exercises and told to soak her leg. She states that the pain has continued to get worse. She states that when she is just sitting there that her pain is a 6 out of 10, however if she puts any weight on it is a 10+ out of 10. Patient denies any injury to the foot. She states that she did take some pain medication for this, which seemed to help although yesterday she had to take more than Previously. Patient denies any fevers, chills, nausea, vomiting or diarrhea. Patient has history of DVT, one was diagnosed in the recent past. She was started on Plavix for that which she has been taking regularly. Patient is concerned she may have a DVT or a clot in her artery in the right leg which is causing her pain. He feels as if her leg is different colored and states that it has felt cooler last few days. REVIEW OF SYSTEMS: Respiratory: No cough, no dyspnea. Cardiovascular: No chest pain, no palpitations. Gastrointestinal: No vomiting, no abdominal pain. Musculoskeletal: As noted above Allergies: Coded Allergies: fluoxetine (Verified Allergy, Mild, 05/12/17) sulfamethoxazole (Verified Adverse Reaction, Severe, PT STATES AFFECTED KIDNEYS, 05/12/17) trimethoprim (Verified Adverse Reaction, Severe, PT STATES AFFECTED KIDNEYS, 05/12/17) ertapenem (Verified Adverse Reaction, Intermediate, 05/12/17) messed with my liver and made me really sick oxycodone (Verified Adverse Reaction, Mild, FEELS REAL WEIRD, 05/12/17) Home Meds Active Scripts Prednisone (PREDNISONE) 20 Mg Tablet, 40 MG PO DAILY, #10 TAB Prov:DAVID REYNA 07/15/17 Insulin Glargine (LANTUS) 100 Unit/Ml Soln, 15 UNIT SUBQ QDAY for 30 Days, Prov:JAQUELIN BRITO MD 07/13/16 Reported Medications Amlodipine Besylate (AMLODIPINE BESYLATE) 5 Mg Tablet, 1 TAB PO QDAY, TAB 07/15/17 Insulin Aspart (NOVOLOG) 100 Unit/1 Ml Cartridge, 5 UNIT SQ ACHS 05/12/17 Levothyroxine Sodium (LEVOTHYROXINE SODIUM) 75 Mcg Tablet, 75 MCG PO QODAY, TAB 05/12/17 Isosorbide Mononitrate (ISOSORBIDE MONONITRATE ER) 30 Mg Tab.er.24h, 30 MG PO DAILY 05/12/17 Metoprolol Succinate (METOPROLOL SUCCINATE) 50 Mg Tab.er.24h, 1 TAB PO QDAY, TAB 07/11/16 Levothyroxine Sodium (LEVOTHYROXINE SODIUM) 50 Mcg Tablet, 50 MCG PO QODAY, #30 07/11/16 Cilostazol (CILOSTAZOL) 50 Mg Tablet, 50 MG PO BID 07/11/16 Sitagliptin Phosphate (JANUVIA) 100 Mg Tablet, 100 MG PO QDAY 05/05/16 Atorvastatin Calcium (LIPITOR) 40 Mg Tablet, 1 TAB PO QDAY, TAB 04/11/15 Clopidogrel Bisulfate (PLAVIX) 75 Mg Tablet, 1 TAB PO QDAY TAKE ONE TABLET BY MOUTH EVERY DAY 07/13/14 Aspirin (ASPIR 81) 81 Mg Tablet.dr, 81 MG PO QDAY, TAB 07/13/14 Past Medical/Surgical History Patient has past medical history of CVA, migraine, DE, DVT, hypertension, hyperlipidemia, reflux, hiatal hernia, frequent UTI, arthritis, type 2 diabetes , hypothyroidism, alcohol use. Patient has past surgical history of cataract surgery, hysterectomy, bowel obstruction with resection, appendectomy, CABG, coronary stent. Patient has family medical history of CAD, diabetes. Reviewed Nurses Notes: Yes Hx Smoking: No Smoking Status: Former Smoker Exposure to Second Hand Smoke?: No Hx Substance Use Disorder: No Hx Alcohol Use: Yes Constitutional Vital Sign - Last 24 Hours 07/15/17 07/15/17 07/15/17 07/15/17 11:05 11:07 11:14 11:20 Temp 97.5 Pulse 69 66 Resp 16 12 B/P (MAP) 184/86 (118) 128/53 (78) Pulse Ox 91 92 O2 Delivery Room Air 5/8/07/15/17 07/15/17 07/15/17 11:29 11:40 11:44 11:59 Pulse 63 60 58 Resp 16 19 10 B/P (MAP) 146/51 (82) Pulse Ox 93 81 89 07/15/17 07/15/17 07/15/17 07/15/17 12:00 12:14 12:20 12:29 Pulse 56 58 Resp 12 15 B/P (MAP) 154/65 (94) 149/61 (90) Pulse Ox 89 93 07/15/17 07/15/17 07/15/17 07/15/17 12:34 12:39 12:40 12:54 Pulse 57 58 60 Resp 11 23 13 B/P (MAP) 131/76 (94) Pulse Ox 93 89 94 07/15/17 07/15/17 07/15/17 07/15/17 13:00 13:09 13:20 13:24 Pulse 61 58 Resp 12 15 B/P (MAP) 122/49 (73) 126/62 (83) Pulse Ox 92 98 07/15/17 07/15/17 07/15/17 07/15/17 13:29 13:40 13:44 13:59 Pulse 55 57 54 Resp 9 14 15 B/P (MAP) 147/57 (87) Pulse Ox 91 97 97 07/15/17 07/15/17 07/15/17 07/15/17 14:00 14:14 14:20 14:29 Pulse 55 54 Resp 13 13 B/P (MAP) 132/50 (77) 136/55 (82) Pulse Ox 95 94 07/15/17 07/15/17 07/15/17 07/15/17 14:40 14:45 14:50 15:00 Pulse 58 ??? Resp 20 B/P (MAP) 128/46 (73) 113/79 (90) Pulse Ox 96 07/15/17 07/15/17 07/15/17 07/15/17 15:05 15:20 15:35 15:40 Pulse 57 56 55 B/P (MAP) 134/63 (86) 138/64 (88) Pulse Ox 91 87 93 07/15/17 15:45 Pulse 56 Pulse Ox 94 Physical Exam General Appearance: The patient is alert, has no immediate need for airway protection and no current signs of toxicity. ENT: Tympanic membranes are pearly-tobin, auditory canals are patent, mucous membranes are moist. Respiratory: Chest is non tender, lungs are clear to auscultation. Cardiac: regular rate and rhythm Gastrointestinal: Abdomen is soft and non tender, no masses, bowel sounds normal. Musculoskeletal: Neck: Neck is supple and non tender. Extremities have full range of motion and are non tender. A shunt has tenderness at the anterior aspect of the right heel, there is no bruising noted. Leg feels the same temperature as the left leg. There is no obvious swelling noted. Skin: No rashes or lesions. DIFFERENTIAL DIAGNOSIS: After history and physical exam differential diagnosis was considered for DVT, plantar fasciitis, arterial clot, fracture. Medical Decision Making EKG/Imaging Imaging Exam type: FOOT 3 VIEW RIGHT History: Pain no known injury Comparison: January 27, 2014. Findings: There is no evidence of acute fracture-dislocation involving the right foot. There are mild to moderate degenerative changes seen throughout the interphalangeal joints. Dense vascular calcifications are present throughout the visualized soft tissues. There is a small right calcaneal spur IMPRESSION: 1. No evidence of acute fracture-dislocation involving the right foot Mild to moderate degenerative changes as described Very dense vascular calcifications throughout the visualized soft tissues Report Dictated By: Jane Ochoa MD at 07/15/2017 11:54 AM Report E-Signed By: Jane Ochoa MD at 07/15/2017 11:56 AM Exam type: ARTERIAL LOWER EXT RIGHT History: Pain to right foot, history of DVT Comparison: January 03, 2016. Findings: The right superficial femoral graft is occluded as seen on the prior study.. The peak systolic velocity in the right lower extremity and centimeters per second are as follows: Right common femoral artery 34.1 Proximal right SFA 66 Mid right SFA 46.6 Distal right SFA 19.6 proximal right popliteal artery occluded Distal right popliteal artery 60.9 Peroneal artery 18.5 Posterior tibial artery proximally 12.2 and mid 10.7 and occluded distally Right anterior tibial artery 28.4 Dorsalis pedis artery 36.1 Monophasic flow seen throughout the visualized right lower extremity arterial tree IMPRESSION: 1. The right SFA graft is occluded as seen on the prior study Occlusion of the right popliteal artery proximally Monophasic waveforms seen throughout the visualized [place] right lower extremity arteries Report Dictated By: Jane Ochoa MD at 07/15/2017 1:27 PM Report E-Signed By: Jane Ochoa MD at 07/15/2017 1:37 PM Exam type: VENOUS DOPP LOW RIGHT EXTREMIT History: pain to right foot, hx of dvt Comparison: September 28, 2013. Findings: The right lower extremity veins were imaged including the right common femoral vein, superficial femoral vein, popliteal vein, posterior tibial vein, peroneal vein, anterior tibial vein revealing no evidence of intraluminal thrombi the veins were compressible and demonstrated augmentation IMPRESSION: 1. No sonographic evidence DVT involving the right lower extremity veins Report Dictated By: Jane Ochoa MD at 07/15/2017 1:37 PM Report E-Signed By: Jane Ochoa MD at 07/15/2017 1:39 PM ED Course/Re-evaluation ED Course Patient was admitted to exam room, history and physical were obtained. Differential diagnoses were considered. On examination patient had tenderness to the anterior aspect of the right calcaneus. Patient states she is concerned about blood clot in her right leg as she does have a history of a thrombus in the superficial femoral artery graft. As a result of that a ultrasound was done of the arteries, veins as well as an x-ray of the right foot. The imaging results were unremarkable, the ultrasound of the arteries showed occlusive clot in the superficial femoral artery graft as well as the proximal aspect of the popliteal. I was unable to visualize the previous reports and so I discussed the case with Dr. Navarro, he was able to review the previous images which showed that they did in fact have no acute changes. I discussed the case with the patient and her family. I feel that patient has a plantar fasciitis which is causing the pain. As I was talking with the patient and her family her granddaughter asked if it were possible for the patient to be admitted. I discussed the case with Dr. Yarbrough, hospitalist, who stated that plantar fasciitis is no reason to be admitted to the hospital. I discussed this with the patient and the family and they verbalized understanding and agreement. We will go ahead and discharge the patient home. She will be started on prednisone and that was sent into her pharmacy. She is follow-up Dr. Cormier, cinnamon grinder in the next week. She states to return to emergency room if condition worsens. Patient and family verbalized understanding and agreement with plan. Decision to Disposition Date: July 15, 2017 Decision to Disposition Time: 15:37 Depart Departure Latest Vital Signs Vital Signs Date Time Temp Pulse Resp B/P (MAP) Pulse Ox O2 Delivery O2 Flow Rate FiO2 07/15/17 15:45 56 94 07/15/17 15:40 138/64 (88) 07/15/17 14:45 20 07/15/17 11:05 97.5 Room Air Impression: Primary Impression: Plantar fasciitis of right foot Condition: Improved Disposition: HOME OR SELF-CARE Referrals: CHANDRIKA ZUNIGA DO (PCP) New Scripts Prednisone (PREDNISONE) 20 Mg Tablet 40 MG PO DAILY, #10 TAB Prov: DAVID REYNA 07/15/17 Patient Instructions: Plantar Fasciitis (ED), Plantar Fasciitis Exercises (ED) Additional Instructions: Limit activity by pain. Get plenty of rest. Follow up with Dr. Cormier in the next week. Take the Prednisone as directed. You may take your pain medication in addition to the steroid. Return to the ER if condition worsens. DAVID REYNA July 15, 2017 11:15
[2017-07-15] MEDS ORDERED: AMLO-96 PO (11:18)
--- NOTE | 2017-07-15 11:59 | RADIOLOGY IMAGING REPORT ---
FACILITY: [facility] - [place] PATIENT NAME: Donna Arreola : 1945 MR: [id number] V: [id number] EXAM DATE: ORDERING PHYSICIAN: DAVID REYNA TECHNOLOGIST: Location: [facility] - [place] Patient: Donna Arreola : 1945 Visit/Account:[id number] Date of Sevice: 07/15/2017 Exam type: FOOT 3 VIEW RIGHT History: Pain no known injury Comparison: January 27, 2014. Findings: There is no evidence of acute fracture-dislocation involving the right foot. There are mild to moder ate degenerative changes seen throughout the interphalangeal joints. Dense vascular calcifications a re present throughout the visualized soft tissues. There is a small right calcaneal spur IMPRESSION: 1. No evidence of acute fracture-dislocation involving the right foot Mild to moderate degenerative changes as described Very dense vascular calcifications throughout the visualized soft tissues Report Dictated By: Jane Ochoa MD at 07/15/2017 11:54 AM Report E-Signed By: Jane Ochoa MD at 07/15/2017 11:56 AM WSN:[email or web address]
--- NOTE | 2017-07-15 13:42 | RADIOLOGY IMAGING REPORT ---
FACILITY: [facility] - [place] PATIENT NAME: Donna Arreola : 1945 MR: [id number] V: [id number] EXAM DATE: ORDERING PHYSICIAN: DAVID REYNA TECHNOLOGIST: Location: [facility] - [place] Patient: Donna Arreola : 1945 Visit/Account:[id number] Date of Sevice: 07/15/2017 Exam type: ARTERIAL LOWER EXT RIGHT History: Pain to right foot, history of DVT Comparison: January 03, 2016. Findings: The right superficial femoral graft is occluded as seen on the prior study.. The peak systolic [place] in the right lower extremity and centimeters per second are as follows: Right common femoral artery 34.1 Proximal right SFA 66 Mid right SFA 46.6 Distal right SFA 19.6 proximal right popliteal artery occluded Distal right popliteal artery 60.9 Peroneal artery 18.5 Posterior tibial artery proximally 12.2 and mid 10.7 and occluded distally Right anterior tibial artery 28.4 Dorsalis pedis artery 36.1 Monophasic flow seen throughout the visualized right lower extremity arterial tree IMPRESSION: 1. The right SFA graft is occluded as seen on the prior study Occlusion of the right popliteal artery proximally Monophasic waveforms seen throughout the visualized [place] right lower extremity arteries Report Dictated By: Jane Ochoa MD at 07/15/2017 1:27 PM Report E-Signed By: Jane Ochoa MD at 07/15/2017 1:37 PM WSN:[email or web address]
--- NOTE | 2017-07-15 13:42 | RADIOLOGY IMAGING REPORT ---
FACILITY: [facility] PATIENT NAME: Donna Arreola : 1945 MR: [id number] V: [id number] EXAM DATE: ORDERING PHYSICIAN: DAVID REYNA TECHNOLOGIST: Location: [facility] - [place] Patient: Donna Arreola : 1945 Visit/Account:[id number] Date of Sevice: 07/15/2017 Exam type: VENOUS DOPP LOW RIGHT EXTREMIT History: pain to right foot, hx of dvt Comparison: September 28, 2013. Findings: The right lower extremity veins were imaged including the right common femoral vein, superficial femo ral vein, popliteal vein, posterior tibial vein, peroneal vein, anterior tibial vein revealing no elizabeth dence of intraluminal thrombi the veins were compressible and demonstrated augmentation IMPRESSION: 1. No sonographic evidence DVT involving the right lower extremity veins Report Dictated By: Jane Ochoa MD at 07/15/2017 1:37 PM Report E-Signed By: Jane Ochoa MD at 07/15/2017 1:39 PM WSN:[email or web address]
[2017-07-15 15:40] VITALS: BP 138/64
[2017-07-15] MEDS ORDERED: PRED20TA6 PO ×2 (15:53→15:59)
== END 2017-07-15 16:15 | disposition home or self-care (01) ==
LOC: ER 11:11
DX: M72.2 Plantar fascial fibromatosis (principal)
CPT/HCPCS: 99284

== ENCOUNTER 2017-08-13 08:00 | Outpatient (RCR) | payer MEDICARE, MEDICAID ==
[2017-05-13 12:54] VITALS: BMI 29.9
[2017-07-14 17:36] VITALS: BP 98/58
[2017-07-14 17:37] VITALS: BP 92/60
[2017-07-28 13:24] VITALS: BP 112/68
[2017-07-28 13:25] VITALS: BP 112/68
[2017-07-30 13:28] VITALS: BP 108/68
[2017-08-11 13:06] VITALS: BP 104/64
[2017-08-11 13:07] VITALS: BP 102/58
[2017-08-13 17:09] VITALS: BP 120/78
[2017-08-13 17:10] VITALS: BP 92/62
== END 2017-08-13 18:00 | disposition home or self-care (01) ==
LOC: CARD 08:00
PROVIDERS: ATTEND Internal Medicine Cardiovascular Disease
DX: I25.2 Old myocardial infarction (principal); Z95.5 Presence of coronary angioplasty implant and graft; I82.409 Acute embolism and thrombosis of unspecified deep veins of unspecified lower extremity
CPT/HCPCS: 93798

== ENCOUNTER → 2017-09-24 | Outpatient (CLI) | payer MEDICARE, MEDICAID ==
[2017-05-13 12:54] VITALS: BMI 29.9
[~2017-09-24] MED LIST changes: +IPRA3AMP10 IH; -IPRA3AMP21 IH; +REGADENOSON 0.4 MG/5 ML SYR ONE
--- NOTE | 2017-09-24 16:55 | RADIOLOGY IMAGING REPORT ---
FACILITY: [facility] [place] PATIENT NAME: Donna Arreola : 1945 MR: [id number] V: [id number] EXAM DATE: ORDERING PHYSICIAN: RK SCHAFFER TECHNOLOGIST: Location: [facility] [place] Patient: Donna Arreola : 1945 Visit/Account:[id number] Date of Sevice: 09/24/2017 EXAMINATION: Single isotope SPECT imaging with regadenoson infusion and gated SPECT imaging. DATE OF EXAMINATION: September 24, 2017. DATE OF INTERPRETATION: September 24, 2017. REQUESTING PHYSICIAN: RK SCHAFFER. INDICATION: The patient is a 72-year-old female evaluated for coronary artery disease. PROCEDURE: After informed consent the patient received an intravenous injection of 12.1 mCi of Tc-99 m sestamibi followed at an appropriate time interval by rest imaging. The patient then subsequently received an intravenous infusion of 0.4 mg of regadenoson per protocol without complication. Resting heart rate was 58 bpm with a peak heart rate of 76 bpm. Blood pressure at rest was 123 / 82 and fol lowing infusion was 111 / 66. Baseline EKG demonstrates normal sinus rhythm with diffuse T-wave inve rsions. There were no EKG changes of ischemia following infusion. Symptoms were nonspecific. The p atient then received an intravenous injection of 29.1 mCi of Tc-99m sestamibi followed by stress imag ing. RAW DATA: Examination of the summed raw data revealed a good quality study. MYOCARDIAL PERFUSION: The tomographic images demonstrate a mild decrease in myocardial perfusion tra cer uptake in the mid to apical anterolateral and inferolateral wall seen on stress imaging not appre ciated on rest imaging. GATED IMAGES: The gated images demonstrate an ejection fraction greater than 70% with no wall motion abnormality. IMPRESSION: 1. Abnormal myocardial perfusion scan with a mid to apical lateral reversible defect consistent with ischemia 2. Abnormal myocardial perfusion scan. 3. Normal LV systolic function; LVEF greater than 70%. 4. Based on the results of this exam, the patient appears to be at intermediate risk for future cardi ovascular events. Report Dictated By: Kathy Ragland at 09/24/2017 4:49 PM Report E-Signed By: Kathy Ragland at 09/24/2017 4:51 PM WSN:[email or web address]
== END ==
LOC: NUC 00:58
PROVIDERS: ATTEND Internal Medicine Cardiovascular Disease
DX: I25.119 Atherosclerotic heart disease of native coronary artery with unspecified angina pectoris (principal)
CPT/HCPCS: 78452; 93017; A9500; J2785

== ENCOUNTER → 2018-01-01 | Outpatient (CLI) | payer MEDICARE, MEDICAID ==
[2017-05-13 12:54] VITALS: BMI 29.9
[~2018-01-01] MED LIST changes: +AMLO-111 PO; -AMLO-96 PO; -HYDR-4305 PO; -HYDR-4309 PO; +HYDR-627 PO; +HYDR-653 PO; -REGADENOSON 0.4 MG/5 ML SYR ONE
--- NOTE | 2018-01-01 14:31 | RADIOLOGY IMAGING REPORT ---
FACILITY: [facility] - [place] PATIENT NAME: Donna Arreola : 1945 MR: [id number] V: [id number] EXAM DATE: ORDERING PHYSICIAN: ELISSA CHAVARRIA TECHNOLOGIST: Location: [facility] [place] Patient: Donna Arreola : 1945 Visit/Account:[id number] Date of Sevice: 01/01/2018 2 VIEWS CHEST INDICATION: Fever and lethargy for one week. Shortness of breath at night. COMPARISON: X-ray examination chest February 2017 FINDINGS: Operative changes from previous CABG. Coronary artery stent is noted. No failure, focal infiltrate, effusion or pneumothorax. No acute bony finding. IMPRESSION: 1. No acute cardiopulmonary process. Report Dictated By: Blanco Morales MD at 01/01/2018 2:25 PM Report E-Signed By: Blanco Morales MD at 01/01/2018 2:26 PM WSN:[email or web address]
== END ==
LOC: RAD 12:01
PROVIDERS: ATTEND Family Medicine
DX: R50.9 Fever, unspecified (principal)
CPT/HCPCS: 71046

== ENCOUNTER → 2018-01-20 | Outpatient (CLI) | payer MEDICARE, MEDICAID ==
[2017-05-13 12:54] VITALS: BMI 29.9
[~2018-01-20] MED LIST changes: +GLIP-179 PO; -GLIP10TA26 PO; -ZINC50TA71 PO; +ZINC50TA9 PO
--- NOTE | 2018-01-20 09:25 | RADIOLOGY IMAGING REPORT ---
[place] [facility] [place]: Donna Arreola : 1945 MR: [id number] V: [id number] EXAM DATE: ORDERING PHYSICIAN: ELISSA CHAVARRIA TECHNOLOGIST: Location: [facility] Patient: Donna Arreola : 1945 Visit/Account:[id number] Date of Sevice: 01/20/2018 ABDOMEN/PELVIS W/O CONTRAST HISTORY: Kidney infection, abdominal pain TECHNIQUE: CT abdomen and pelvis without intravenous contrast. Contiguous axial images of the abdom en and pelvis was performed from the lung bases to the symphysis pubis. One of the following dose optimization techniques was utilized in the performance of this exam: Autom ated exposure control; adjustment of the mA and/or kV according to the patient's size; or use of an i terative reconstruction technique. Specific details can be referenced in the facility's radiology C T exam operational policy. CONTRAST: None. COMPARISON: 05/13/2017 FINDINGS: Visualized lung bases: Mild subpleural interstitial thickening and reticulation at the right lung ba se is unchanged could represent mild interstitial lung disease. Calcified coronary atherosclerotic d isease is noted. Hepatobiliary: Negative. Spleen: Lobulated but otherwise unchanged. Adrenals: Negative. Kidneys/: Calcifications in the kidneys are almost entirely vascular. No obstructing renal or ure teral stones are seen. Several bubbles of air are noted in the bladder possibly from bladder catheterization. No obvious fi stula to the bladder. Pancreas: There is fatty infiltration of the pancreas GI: No bowel obstruction or focal inflammation. Some mild diverticulosis is noted. Vessels/spaces/nodes: Extensive vascular calcifications noted. Metallic stents in the right renal a rtery and both external iliac arteries are noted. There is also a right femoropopliteal bypass graft and metallic stents in the proximal SFAs. Bones/soft tissues: Patient has a scoliosis with degenerative changes. IMPRESSION: 1. No acute pathology in the abdomen or pelvis. 2. Several bubbles of air noted in the bladder possibly from recent catheterization. No obvious fis dafne identified to the bladder. No obstructing renal or ureteral stones. 3. Numerous other chronic findings are detailed above. Report Dictated By: Wilmar Ha MD at 01/20/2018 8:57 AM Report E-Signed By: Wilmar Ha MD at 01/20/2018 9:21 AM WSN:[email or web address]
== END ==
LOC: CT 01:01
PROVIDERS: ATTEND Family Medicine
DX: R91.8 Other nonspecific abnormal finding of lung field (principal); I70.1 Atherosclerosis of renal artery; K57.90 Diverticulosis of intestine, part unspecified, without perforation or abscess without bleeding
CPT/HCPCS: 74176

== ENCOUNTER → 2018-02-19 | Outpatient (CLI) | payer MEDICARE, MEDICAID ==
[2017-05-13 12:54] VITALS: BMI 29.9
--- NOTE | 2018-02-19 16:52 | RADIOLOGY IMAGING REPORT ---
FACILITY: [facility] [place] PATIENT NAME: Donna Arreola : 1945 MR: [id number] V: [id number] EXAM DATE: ORDERING PHYSICIAN: CHANDRIKA ZUNIGA TECHNOLOGIST: Location: [facility] - [place] Patient: Donna Arreola : 1945 Visit/Account:[id number] Date of Sevice: 02/19/2018 Chest with lateral, two views. HISTORY: Cough. COMPARISON: 01/01/2018. The heart is mildly enlarged. The thoracolumbar abdominal aorta is calcified. Coronary artery stent s are present along the heart. Metal clips are present in the anterior mediastinum. Pulmonary vesse ls are normal. The lungs are clear. No pleural fluid. Minimal pleural parenchymal scarring is pres ent in the right lateral lung base, unchanged. Degenerative changes are present in the spine. No pn eumothorax. A calcification projects on the right breast, unchanged. IMPRESSION: Mild cardiomegaly without dana congestive heart failure. Atherosclerosis. Report Dictated By: Ty Vazquez MD at 02/19/2018 4:45 PM Report E-Signed By: Ty Vazquez MD at 02/19/2018 4:48 PM WSN:[email or web address]
== END ==
LOC: RAD 16:15
PROVIDERS: ATTEND Family Medicine
DX: I51.7 Cardiomegaly (principal)
CPT/HCPCS: 71046

== ENCOUNTER → 2018-06-03 | Outpatient (CLI) | payer MEDICARE, MEDICAID ==
[2017-05-13 12:54] VITALS: BMI 29.9
[~2018-06-03] MED LIST changes: -AMLO-111 PO; +AMLO-125 PO
== END ==
LOC: LAB 08:55
PROVIDERS: ATTEND Internal Medicine Cardiovascular Disease
DX: I25.10 Atherosclerotic heart disease of native coronary artery without angina pectoris (principal)
CPT/HCPCS: 36415; 82310; 82374; 82435; 82465; 82565; 82947; 83718; 84132; 84295; 84478; 84520

== ENCOUNTER → 2018-06-12 | Outpatient (CLI) | payer MEDICARE, MEDICAID ==
[2017-05-13 12:54] VITALS: BMI 29.9
--- NOTE | 2018-06-12 14:24 | RADIOLOGY IMAGING REPORT ---
FACILITY: [facility] [place] PATIENT NAME: Donna Arreola : 1945 MR: [id number] V: [id number] EXAM DATE: ORDERING PHYSICIAN: RK SCHAFFER TECHNOLOGIST: Location: [facility] Patient: Donna Arreola : 1945 Visit/Account:[id number] Date of Sevice: 06/12/2018 Exam type: ARTERIAL BILAT LOWER EXT History: Atherosclerotic peripheral vascular disease with intermittent claudication, pain in right le g and swelling in left leg, history of vascular stents Comparison: July 15, 2017. Findings: Peak systolic velocities are reported in centimeters per second Right lower extremity: Right common femoral artery: monophasic flow, peak systolic velocity 153 Right [place] femoral artery: Monophasic flow, peak systolic velocity 110 Right SFA proximal: Monophasic flow, peak systolic velocity 90.1 Right SFA mid: Monophasic flow, peak systolic velocity 106 Distal SFA monophasic flow, peak systolic velocity 98.2 Right popliteal artery proximal,: Monophasic flow, peak systolic velocity 40.4 cm/s Right popliteal artery distal: monophasic flow, peak systolic velocity 41.3 cm/s Right posterior tibial artery: Monophasic flow, peak systolic velocity ranged between 20.7 and 36.4 Right peroneal artery: Monophasic flow, peak systolic velocity 20.4 Right anterior tibial artery: Monophasic flow, peak systolic velocity 22.6 Right dorsalis pedis artery: Monophasic flow, peak systolic velocity 24.8 The right SFA graft appears to be occluded as in other studies. Left lower extremity: Left common femoral artery: Monophasic flow, peak systolic velocity 90.7 Left [place] femoral artery: Monophasic flow, peak systolic velocity 107 Left SFA proximally: Monophasic flow, peak systolic velocity 129 Left SFA mid: Monophasic flow, peak systolic velocity 47.8 Left SFA distal: Monophasic flow, peak systolic velocity 87 Left popliteal artery proximally: Monophasic flow, peak systolic velocity 106 Left popliteal artery distally: Monophasic flow, peak systolic velocity 98.8 Left posterior tibial artery: Monophasic flow, peak systolic velocity ranged between 13.2 and 75. Left peroneal artery: Monophasic flow, peak systolic velocity 24.2 Left anterior tibial artery: Phasic flow, peak systolic velocity 108 Left dorsalis pedis artery: Monophasic flow, peak systolic velocity 33.9 IMPRESSION: 1. There is monophasic flow seen throughout the bilateral lower extremity arterial tree. The previou sly noted right SFA graft appears occluded as on the prior examinations Report Dictated By: Jane Ochoa MD at 06/12/2018 2:07 PM Report E-Signed By: Jane Ochoa MD at 06/12/2018 2:20 PM WSN:[email or web address]
== END ==
LOC: US 02:25
PROVIDERS: ATTEND Internal Medicine Cardiovascular Disease
DX: I70.219 Atherosclerosis of native arteries of extremities with intermittent claudication, unspecified extremity (principal)
CPT/HCPCS: 93925

== ENCOUNTER 2018-07-05 12:18 | Emergency (ER) | payer MEDICARE, MEDICAID ==
[2017-05-13 12:54] VITALS: Wt 65.3 kg
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
[2018-07-05] MEDS ORDERED: NS(*) 0.9% 1000 ML BAG 1,000 ML IV ONE (12:28)
[2018-07-05] MEDS ORDERED: ASPIRIN 81 MG CHEW CHEW ONE (12:30)
[2018-07-05 12:42] LABS: PLATELET COUNT, AUTOMATED 232 K/uL (150-450)
--- NOTE | 2018-07-05 13:17 | RADIOLOGY IMAGING REPORT ---
FACILITY: [facility] - [place] PATIENT NAME: Donna Arreola : 1945 MR: [id number] V: [id number] EXAM DATE: ORDERING PHYSICIAN: VIVIAN HUNTER TECHNOLOGIST: Location: [facility] - [place] Patient: Donna Arreola : 1945 Visit/Account:[id number] Date of Sevice: 07/05/2018 Exam type: CHEST PA LAT History: Chest pain Comparison: 02/19/2018. Findings: Both lungs are well-expanded. Chronic interstitial changes are noted but there is no focal infiltrate , pleural effusion or pneumothorax. Heart is enlarged. Patient appears to have had prior metallic cardiac stents. The osseous structures demonstrate a scoliosis with degenerative changes. IMPRESSION: 1. No acute cardiopulmonary disease. Report Dictated By: Wilmar Ha MD at 07/05/2018 1:11 PM Report E-Signed By: Wilmar Ha MD at 07/05/2018 1:13 PM WSN:[id number]
--- NOTE | 2018-07-05 13:18 | RADIOLOGY IMAGING REPORT ---
FACILITY: [facility] PATIENT NAME: Donna Arreola : 1945 MR: [id number] V: [id number] EXAM DATE: ORDERING PHYSICIAN: VIVIAN HUNTER TECHNOLOGIST: Location: [facility] Patient: Donna Arreola : 1945 Visit/Account:[id number] Date of Sevice: 07/05/2018 Exam type: KUB SINGLE VIEW ABDOMEN History: Constipation Comparison: 11/30/2013. Findings: The bowel gas pattern is notable for constipation. No evidence for bowel obstruction or free air. Metallic stents overlie the right renal artery and the iliac vessels bilaterally. Surgical clips over lie the right groin. The osseous structures demonstrate a scoliosis with degenerative changes. IMPRESSION: 1. Constipation but no definite bowel obstruction or free air. Report Dictated By: Wilmar Ha MD at 07/05/2018 1:13 PM Report E-Signed By: Wilmar Ha MD at 07/05/2018 1:14 PM WSN:[id number]
--- NOTE | 2018-07-05 13:40 | EKG ---
FACILITY: [facility] - [place] PATIENT NAME: LLOYD NEWTON : [id number] MR: [id number] V: [id number] EXAM DATE: ORDERING PHYSICIAN: VIVIAN HUNTER TECHNOLOGIST: Test Reason : Chest pain Blood Pressure : / mmHG Vent. Rate : 061 BPM Atrial Rate : 061 BPM P-R Int : 152 ms QRS Dur : 064 ms QT Int : 442 ms P-R-T Axes : 028 -04 131 degrees QTc Int : 444 ms Sinus rhythm Left axis Artifact in limb leads - repeat EKG if needed Nonspecific T wave flattening laterally ST-T findings in limb leads appear similar to previous Question previous inferior infarct Abnormal ECG Confirmed by HITESH DING ([id number]) on 07/05/2018 3:30:48 PM Referred By: Confirmed By:HITESH DING
--- NOTE | 2018-07-05 14:23 | RADIOLOGY IMAGING REPORT ---
FACILITY: [facility] - [place] PATIENT NAME: Donna Arreola : 1945 MR: [id number] V: [id number] EXAM DATE: ORDERING PHYSICIAN: VIVIAN HUNTER TECHNOLOGIST: Location: [facility] - [place] Patient: Donna Arreola : 1945 Visit/Account:[id number] Date of Sevice: 07/05/2018 CT ABDOMEN PELVIS W/O CON Indication: eval for obstruction COMPARISON STUDIES: CT abdomen and pelvis 01/20/2018. TECHNIQUE: Noncontrast CT lung bases to the pubic symphysis obtained. One of the following dose optimization techniques was utilized in the performance of this exam: autom ated exposure control; adjustment of the mA and/or kV according to the patient's size; or use of an i terative reconstruction technique. Specific details can be referenced in the facility's radiology CT exam operational policy. FINDINGS: Liver / gallbladder: The liver demonstrates normal attenuation. Gallbladder is unremarkable. Pancreas: Pancreas is unremarkable. Spleen: Normal. Adrenal glands: Normal. Kidneys: No calculi, or hydronephrosis. Normal attenuation is seen. Pelvis: The urinary bladder is normal. Bowel: Diverticular changes are seen on the sigmoid colon. Small bowel and stomach are normal. Vessels: Atherosclerotic changes are seen throughout the arterial vessels. Musculoskeletal / Body wall: Subcutaneous calcification is seen in the abdomen anteriorly. There are no lytic or blastic bone lesions. Lymph node assessment: Negative Lower chest: Negative IMPRESSION: 1. No evidence of small bowel obstruction. 2. Severe atherosclerotic changes throughout all the arteries of the abdomen and pelvis. Report Dictated By: Wu Trevino at 07/05/2018 2:10 PM Report E-Signed By: Wu Trevino at 07/05/2018 2:19 PM WSN:[id number]
[2018-07-05] MEDS ORDERED: NITR-105 PO (15:52)
[2018-07-05 16:15] VITALS: BP 102/47
[2018-07-05] MEDS ORDERED: MAGNESIUM CITRATE 300 ML BTL PO ONE (16:20)
== END 2018-07-05 16:36 | disposition home or self-care (01) ==
LOC: ER 12:31
DX: K59.00 Constipation, unspecified (principal)
CPT/HCPCS: 71046; 74018; 74176; 81001; 84484; 85025; 87088; 93005; 99284; A9270; 82040; 82247; 82310; 82374; 82435; 82565; 82947; 84075; 84132; 84155; 84295; 84450; 84460; 84520; 87077; 87186

== ENCOUNTER → 2018-08-05 | Outpatient (CLI) | payer MEDICARE, MEDICAID ==
[2017-05-13 12:54] VITALS: BMI 29.9
[~2018-08-05] MED LIST changes: +REGADENOSON 0.4 MG/5 ML SYR ONE
--- NOTE | 2018-08-05 12:43 | RADIOLOGY IMAGING REPORT ---
FACILITY: [facility] PATIENT NAME: Donna Arreola : 1945 MR: [id number] V: [id number] EXAM DATE: [id number] ORDERING PHYSICIAN: RK SCHAFFER TECHNOLOGIST: Location: [facility] - [place] Patient: Donna Arreola : 1945 Visit/Account:[id number] Date of Sevice: 08/05/2018 EXAMINATION: Single isotope SPECT imaging with regadenoson infusion and gated SPECT imaging. DATE OF EXAMINATION: August 05, 2018. DATE OF INTERPRETATION: August 05, 2018. REQUESTING PHYSICIAN: RK SCHAFFER. INDICATION: The patient is a 72-year-old female evaluated for coronary artery disease. PROCEDURE: After informed consent the patient received an intravenous injection of 11.4 mCi of Tc-99 m sestamibi followed at an appropriate time interval by rest imaging. The patient then subsequently received an intravenous infusion of 0.4 mg of regadenoson per protocol without complication. Resting heart rate was 58 bpm with a peak heart rate of 75 bpm. Blood pressure at rest was 118 / 56 and fol lowing infusion was 124 / 64. Baseline EKG demonstrates normal sinus rhythm with inferolateral T wav e inversions. There were no EKG changes of ischemia following infusion. Symptoms were nonspecific. The patient then received an intravenous injection of 27.4 mCi of Tc-99m sestamibi followed by stres s imaging. RAW DATA: Examination of the summed raw data revealed a good quality study. MYOCARDIAL PERFUSION: The tomographic images demonstrate a mild decrease in myocardial perfusion tra cer uptake in the basal to apical anterolateral and inferolateral costello seen on stress imaging not ap preciated on rest imaging. GATED IMAGES: The gated images demonstrate an ejection fraction greater than 70% with no wall motion abnormality. IMPRESSION: 1. Abnormal myocardial perfusion scan with a mild reversible defect involving the basal to apical an terolateral and inferolateral wall consistent with ischemia in the left circumflex artery 2. Abnormal myocardial perfusion scan. 3. Normal LV systolic function; LVEF greater than 70%. 4. Based on the results of this exam, the patient appears to be at intermediate risk for future cardi ovascular events. Report Dictated By: Kathy Ragland at 08/05/2018 12:35 PM Report E-Signed By: Kathy Ragland at 08/05/2018 12:38 PM WSN:[id number]
--- NOTE | 2018-08-05 14:47 | RT STRESS TEST REPORT ---
FACILITY: [facility] PATIENT NAME: LLOYD NEWTON : [id number] MR: [id number] V: [id number] EXAM DATE: ORDERING PHYSICIAN: RK SCHAFFER TECHNOLOGIST: Maninder Acquisition Time: 2018-08-05 09:50:04 Total Exercise Time: 00:01:00 Test Indications: Screening for CAD Medications: SEE LIST Protocol: LEXISCAN Max HR: 075 BPM 51% of Pred: 147 BPM Max BP: 124/064 mmHG Max Work Load: 1.0 METS Note: 1st resting strip please ignore due to arm lead reversal. Impression No EKG changes to suggest ischemia Nuclear medicine report to follow Confirmed by KAREN VALERIO ([id number]) on 08/05/2018 2:46:52 PM Referred By: Overread By: KAREN VALERIO
== END ==
LOC: NUC 00:41
PROVIDERS: ATTEND Internal Medicine Cardiovascular Disease
DX: I25.119 Atherosclerotic heart disease of native coronary artery with unspecified angina pectoris (principal)
CPT/HCPCS: 78452; 93017; A9500; J2785

== ENCOUNTER 2018-08-22 04:47 | Emergency (ER) | payer MEDICARE, MEDICAID ==
[2017-05-13 12:54] VITALS: Wt 65.7 kg
[~2018-08-22 04:47] MED LIST changes: -PENT400T57 PO; +PENT400T83 PO; -REGADENOSON 0.4 MG/5 ML SYR ONE
--- NOTE | 2018-08-22 04:52 | ER Report ---
History and Physical Time Seen By MD: 04:50 (ALY VENCES DO) HPI/ROS CHIEF COMPLAINT: Vomiting and diarrhea HISTORY OF PRESENT ILLNESS: 72-year-old female presents ambulatory to the ER complaining of subjective fever and chills as well as vomiting and diarrhea. She notes copious diarrhea. She notes one of her grandchildren got sick with her as well after eating chicken nuggets. 3. Other people ate them, but did not get sick. She's been taking [id number] antidiarrhea is without improvement. She notes no blood in emesis or diarrhea. She notes no mucus. She denies recent antibiotic use. Patient notes the pain goes into her back bilaterally. She also notes abdominal bloating. She notes diffuse crampy abdominal pains. Primarily in the epigastric region. REVIEW OF SYSTEMS: Respiratory: No cough, no dyspnea. Cardiovascular: No chest pain, no palpitations. Gastrointestinal: As above Musculoskeletal: As above (ALY VENCES DO) Allergies: Coded Allergies: fluoxetine (Verified Allergy, Mild, 08/22/18) sulfamethoxazole (Verified Adverse Reaction, Severe, PT STATES AFFECTED KIDNEYS, 08/22/18) trimethoprim (Verified Adverse Reaction, Severe, PT STATES AFFECTED KIDNEYS, 08/22/18) ertapenem (Verified Adverse Reaction, Intermediate, 08/22/18) messed with my liver and made me really sick oxycodone (Verified Adverse Reaction, Mild, FEELS REAL WEIRD, 08/22/18) Home Meds Active Scripts Hydrocodone Bit/Acetaminophen (HYDROCODON-ACETAMINOPHEN 5-325) 1 Each Tablet, 1 EACH PO Q6H for PAIN, #12 TAB 0 Refills Prov:SHERRILL FALK MD 08/22/18 Ondansetron 4 Mg Odt (ONDANSETRON 4 MG ODT) 4 Mg Tab.rapdis, 4 MG PO Q6H PRN for NAUSEA/VOMITING, #12 TAB Prov:ALY VENCES DO 08/22/18 Nitrofurantoin Monohyd/M-Cryst (MACROBID 100 MG CAPSULE) 100 Mg Capsule, 100 MG PO BID for 5 Days, #10 CAPSULE 0 Refills Prov:VIVIAN HUNTER CONGRESSIONAL AIDE-BC 07/05/18 Prednisone (PREDNISONE) 20 Mg Tablet, 40 MG PO DAILY, #10 TAB Prov:DAVID REYNA 07/15/17 Insulin Glargine (LANTUS) 100 Unit/Ml Soln, 15 UNIT SUBQ QDAY for 30 Days, Prov:JAQUELIN BRITO MD 07/13/16 Reported Medications Amlodipine Besylate (AMLODIPINE BESYLATE) 5 Mg Tablet, 1 TAB PO QDAY, TAB 07/15/17 Insulin Aspart (NOVOLOG) 100 Unit/1 Ml Cartridge, 5 UNIT SQ ACHS 05/12/17 Levothyroxine Sodium (LEVOTHYROXINE SODIUM) 75 Mcg Tablet, 75 MCG PO QODAY, TAB 05/12/17 Isosorbide Mononitrate (ISOSORBIDE MONONITRATE ER) 30 Mg Tab.er.24h, 30 MG PO DAILY 05/12/17 Metoprolol Succinate (METOPROLOL SUCCINATE) 50 Mg Tab.er.24h, 1 TAB PO QDAY, TAB 07/11/16 Levothyroxine Sodium (LEVOTHYROXINE SODIUM) 50 Mcg Tablet, 50 MCG PO QODAY, #30 07/11/16 Cilostazol (CILOSTAZOL) 50 Mg Tablet, 50 MG PO BID 07/11/16 Sitagliptin Phosphate (JANUVIA) 100 Mg Tablet, 100 MG PO QDAY 05/05/16 Atorvastatin Calcium (LIPITOR) 40 Mg Tablet, 1 TAB PO QDAY, TAB 04/11/15 Clopidogrel Bisulfate (PLAVIX) 75 Mg Tablet, 1 TAB PO QDAY TAKE ONE TABLET BY MOUTH EVERY DAY 07/13/14 Aspirin (ASPIR 81) 81 Mg Tablet.dr, 81 MG PO QDAY, TAB 07/13/14 Past Medical/Surgical History Patient has past medical history of CVA, migraine, TX, DVT, hypertension, hyperlipidemia, reflux, hiatal hernia, frequent UTI, arthritis, type 2 diabetes, hypothyroidism, alcohol use. Patient has past surgical history of cataract surgery, hysterectomy, bowel obstruction with resection, appendectomy, CABG, coronary stent. Patient has family medical history of CAD, diabetes. (ALY VENCES DO) Reviewed Nurses Notes: Yes Old Medical Records Reviewed: Yes (ALY VENCES DO) Hx Smoking: No Smoking Status: Former Smoker Exposure to Second Hand Smoke?: No Hx Substance Use Disorder: No Hx Alcohol Use: Yes (ALY VENCES DO) Constitutional Vital Sign - Last 24 Hours 08/22/18 08/22/18 08/22/18 08/22/18 04:52 04:54 05:00 05:02 Temp 98.2 Pulse 64 64 Resp 18 B/P (MAP) 110/70 (83) 110/70 118/55 (76) Pulse Ox 91 94 O2 Delivery Room Air 08/22/18 08/22/18 08/22/18 08/22/18 05:17 05:30 05:32 06:00 Pulse 61 61 B/P (MAP) 129/54 (79) 123/75 (91) Pulse Ox 89 91 08/22/18 08/22/18 08/22/18 08/22/18 06:02 06:07 06:15 06:30 Pulse 64 63 B/P (MAP) 116/46 (69) Pulse Ox 96 95 O2 Flow Rate 3.0 08/22/18 08/22/18 08/22/18 08/22/18 06:37 07:00 07:07 07:30 Pulse ??? 60 B/P (MAP) 132/51 (78) 115/50 (71) Pulse Ox 93 96 08/22/18 08/22/18 07:37 08:00 Pulse 62 B/P (MAP) 124/58 (80) Pulse Ox 93 Intake and Output 08/21/18 08/21/18 08/22/18 15:01 23:01 07:01 Intake Total 1000 ml Balance 1000 ml (SHERRILL FALK MD) Physical Exam General Appearance: The patient is alert, has no immediate need for airway protection and no current signs of toxicity. Vital signs stable, afebrile, pulse ox normal Eyes: Pupils equal and round no injection. Respiratory: Chest is non tender, lungs are clear to auscultation. Cardiac: regular rate and rhythm Gastrointestinal: Abdomen is soft, mild distention non tender, no masses, bowel sounds normal. Musculoskeletal: Neck: Neck is supple and non tender. Extremities have full range of motion and are non tender. Skin: No rashes or lesions. DIFFERENTIAL DIAGNOSIS: After history and physical exam differential diagnosis was considered for abdominal pain including but not limited to appendicitis, cholecystitis, esterase, viral syndrome, food poisoning gastritis and urinary t ract infection. (ALY VENCES DO) Medical Decision Making Data Points Result Diagram: 08/22/18 0505 08/22/18 0505 Laboratory Hematology Test 08/22/18 05:05 08/22/18 06:44 Red Blood Count 4.77 M/uL (4.17-5.56) Mean Corpuscular Volume 92.6 fL (80.0-96.0) Mean Corpuscular Hemoglobin 31.7 pg (26.0-33.0) Mean Corpuscular Hemoglobin Concent 34.3 g/dL (32.0-36.0) Red Cell Distribution Width 14.2 % (11.5-14.5) Mean Platelet Volume 7.1 fL (7.2-11.1) Neutrophils (%) (Auto) 77.8 % (39.4-72.5) Lymphocytes (%) (Auto) 15.4 % (17.6-49.6) Monocytes (%) (Auto) 6.0 % (4.1-12.4) Eosinophils (%) (Auto) 0.6 % (0.4-6.7) Basophils (%) (Auto) 0.2 % (0.3-1.4) Nucleated RBC Relative Count (auto) 0.0 /100WBC Neutrophils # (Auto) 6.4 K/uL (2.0-7.4) Lymphocytes # (Auto) 1.3 K/uL (1.3-3.6) Monocytes # (Auto) 0.5 K/uL (0.3-1.0) Eosinophils # (Auto) 0.1 K/uL (0.0-0.5) Basophils # (Auto) 0.0 K/uL (0.0-0.1) Nucleated RBC Absolute Count (auto) 0.00 K/uL Sodium Level 136 mmol/L (137-145) Potassium Level 4.3 mmol/L (3.5-5.0) Chloride Level 102 mmol/L (98-107) Carbon Dioxide Level 20 mmol/L (22-31) Blood Urea Nitrogen 36 mg/dl (7-18) Creatinine 1.40 mg/dl (0.52-1.04) Glomerular Filtration Rate Calc 36.9 Random Glucose 148 mg/dl (75-110) Lactate 1.3 mmol/L (0.7-2.1) Calcium Level 8.7 mg/dl (8.4-10.2) Total Bilirubin 1.5 mg/dl (0.2-1.3) Aspartate Amino Transf (AST/SGOT) 27 U/L (0-35) Alanine Aminotransferase (ALT/SGPT) 35 U/L (0-56) Alkaline Phosphatase 134 U/L (0-126) Total Protein 7.1 g/dl (6.3-8.2) Albumin 3.9 g/dl (3.5-5.0) Amylase Level 40 U/L (0-110) Lipase 41 U/L (23-300) Urine Color Yellow Urine Clarity Clear Urine pH 5.0 pH (4.8-9.5) Urine Specific [place] 1.014 Urine Protein Negative mg/dL (NEGATIVE) Urine Glucose (UA) Negative mg/dL (NEGATIVE) Urine Ketones Negative mg/dL (NEGATIVE) Urine Blood Negative (NEGATIVE) Urine Nitrite Negative (NEGATIVE) Urine Bilirubin Negative (NEGATIVE) Urine Urobilinogen Negative mg/dL (0.2-1.9) Urine Leukocyte Esterase Negative (NEGATIVE) Urine RBC <1 /HPF (0-2/HPF) Urine WBC 1 /HPF (0-5/HPF) Urine Squamous Epithelial Cells Moderate /LPF (</=FEW) Urine Bacteria Few /HPF (NONE-FEW) Urine Mucus None /HPF (NONE-FEW) Chemistry Test 08/22/18 05:05 08/22/18 06:44 White Blood Count 8.3 k/uL (4.5-11.0) Red Blood Count 4.77 M/uL (4.17-5.56) Hemoglobin 15.1 g/dL (12.0-16.0) Hematocrit 44.2 % (34.0-47.0) Mean Corpuscular Volume 92.6 fL (80.0-96.0) Mean Corpuscular Hemoglobin 31.7 pg (26.0-33.0) Mean Corpuscular Hemoglobin Concent 34.3 g/dL (32.0-36.0) Red Cell Distribution Width 14.2 % (11.5-14.5) Platelet Count 198 K/uL (150-450) Mean Platelet Volume 7.1 fL (7.2-11.1) Neutrophils (%) (Auto) 77.8 % (39.4-72.5) Lymphocytes (%) (Auto) 15.4 % (17.6-49.6) Monocytes (%) (Auto) 6.0 % (4.1-12.4) Eosinophils (%) (Auto) 0.6 % (0.4-6.7) Basophils (%) (Auto) 0.2 % (0.3-1.4) Nucleated RBC Relative Count (auto) 0.0 /100WBC Neutrophils # (Auto) 6.4 K/uL (2.0-7.4) Lymphocytes # (Auto) 1.3 K/uL (1.3-3.6) Monocytes # (Auto) 0.5 K/uL (0.3-1.0) Eosinophils # (Auto) 0.1 K/uL (0.0-0.5) Basophils # (Auto) 0.0 K/uL (0.0-0.1) Nucleated RBC Absolute Count (auto) 0.00 K/uL Glomerular Filtration Rate Calc 36.9 Lactate 1.3 mmol/L (0.7-2.1) Calcium Level 8.7 mg/dl (8.4-10.2) Total Bilirubin 1.5 mg/dl (0.2-1.3) Aspartate Amino Transf (AST/SGOT) 27 U/L (0-35) Alanine Aminotransferase (ALT/SGPT) 35 U/L (0-56) Alkaline Phosphatase 134 U/L (0-126) Total Protein 7.1 g/dl (6.3-8.2) Albumin 3.9 g/dl (3.5-5.0) Amylase Level 40 U/L (0-110) Lipase 41 U/L (23-300) Urine Color Yellow Urine Clarity Clear Urine pH 5.0 pH (4.8-9.5) Urine Specific [place] 1.014 Urine Protein Negative mg/dL (NEGATIVE) Urine Glucose (UA) Negative mg/dL (NEGATIVE) Urine Ketones Negative mg/dL (NEGATIVE) Urine Blood Negative (NEGATIVE) Urine Nitrite Negative (NEGATIVE) Urine Bilirubin Negative (NEGATIVE) Urine Urobilinogen Negative mg/dL (0.2-1.9) Urine Leukocyte Esterase Negative (NEGATIVE) Urine RBC <1 /HPF (0-2/HPF) Urine WBC 1 /HPF (0-5/HPF) Urine Squamous Epithelial Cells Moderate /LPF (</=FEW) Urine Bacteria Few /HPF (NONE-FEW) Urine Mucus None /HPF (NONE-FEW) Urinalysis Test 08/22/18 06:44 Urine Color Yellow Urine Clarity Clear Urine pH 5.0 pH (4.8-9.5) Urine Specific [place] 1.014 Urine Protein Negative mg/dL (NEGATIVE) Urine Glucose (UA) Negative mg/dL (NEGATIVE) Urine Ketones Negative mg/dL (NEGATIVE) Urine Blood Negative (NEGATIVE) Urine Nitrite Negative (NEGATIVE) Urine Bilirubin Negative (NEGATIVE) Urine Urobilinogen Negative mg/dL (0.2-1.9) Urine Leukocyte Esterase Negative (NEGATIVE) Urine RBC <1 /HPF (0-2/HPF) Urine WBC 1 /HPF (0-5/HPF) Urine Squamous Epithelial Cells Moderate /LPF (</=FEW) Urine Bacteria Few /HPF (NONE-FEW) Urine Mucus None /HPF (NONE-FEW) (SHERRILL FALK MD) EKG/Imaging Imaging FACILITY: [facility] PATIENT NAME: Donna Arreola : 1945 MR: [id number] V: [id number] EXAM DATE: ORDERING PHYSICIAN: ALY VENCES TECHNOLOGIST: Location: [facility] - [place] Patient: Donna Arreola : 1945 Visit/Account:[id number] Date of Sevice: 08/22/2018 US ABD LIMITED ULTRASOUND EXAMINATION: Limited right upper quadrant ultrasound Additional Pertinent history: none COMPARISON STUDIES: CT abdomen and pelvis 07/05/2018. FINDINGS: Liver: Normal echotexture. Gallbladder: Normal wall thickness, no evidence of gallstone. Common duct: normal 3.0 mm. Pancreas: Visualized portions are normal. Right kidney: Normal. No hydronephrosis or mass. Proximal IVC/Aorta: negative IMPRESSION: Normal right upper quadrant ultrasound. No evidence of gallstone. Report Dictated By: Wu Trevino at 08/22/2018 8:16 AM Report E-Signed By: Wu Trevino at 08/22/2018 8:23 AM WSN:[id number] (SHERRILL FALK MD) ED Course/Re-evaluation Clinical Indication for ER IV: Hydration, IV Access ED Course Patient was admitted to an examination room. H&P was done. The differential diagnoses was considered. Patient was treated with IV fluids, Zofran and fentanyl 50 g 2. Patient continued to have significant right flank pain. Her bilirubin and alkaline phosphatase are elevated. An ultrasound of the right upper quadrant was ordered. Her urinalysis returned unremarkable as well as the remainder of her diagnostic studies. Patient's discharged home on Lortab and Zofran. She is advised clear liquid diet. Patient advised to follow-up with primary care if unimproved in 3-5 days. Decision to Disposition Date: Aug 22, 2018 Decision to Disposition Time: 06:05 (ALY VENCES DO) Decision to Disposition Date: Aug 22, 2018 Decision to Disposition Time: 08:33 (SHERRILL FALK MD) Depart Departure Latest Vital Signs Vital Signs Date Time Temp Pulse Resp B/P (MAP) Pulse Ox O2 Delivery O2 Flow Rate FiO2 08/22/18 08:00 124/58 (80) 08/22/18 07:37 62 93 08/22/18 06:15 3.0 08/22/18 04:54 98.2 18 Room Air (SHERRILL FALK MD) Impression: Primary Impression: Vomiting and diarrhea Additional Impression: Dehydration Condition: Improved Disposition: HOME OR SELF-CARE Referrals: CHANDRIKA ZUNIGA DO (PCP) New Scripts Hydrocodone Bit/Acetaminophen (HYDROCODON-ACETAMINOPHEN 5-325) 1 Each Tablet 1 EACH PO Q6H for PAIN, #12 TAB 0 Refills Prov: SHERRILL FLAK MD 08/22/18 Ondansetron 4 Mg Odt (ONDANSETRON 4 MG ODT) 4 Mg Tab.rapdis 4 MG PO Q6H PRN for NAUSEA/VOMITING, #12 TAB Prov: ALY VENCES DO 08/22/18 Patient Instructions: Clear Liquid Diet (ED) Additional Instructions: Follow clear liquid diet for 24-48 hours and advance to the brat diet, bananas, rice, applesauce and toast Avoid fatty food, greasy foods, vegetables and dairy Follow-up with primary care if unimproved in 2-3 days Problem Qualifiers ALY VENCES DO Aug 22, 2018 04:52 SHERRILL FALK MD Aug 22, 2018 08:34
[2018-08-22] MEDS ORDERED: NS(*) 0.9% 1000 ML BAG 1,000 ML IV ONE (05:02)
[2018-08-22] MEDS ORDERED: ONDANSETRON 4 MG/2 ML VIAL IVP ONE ×2 (05:05→06:55)
[2018-08-22] MEDS ORDERED: fentaNYL CITR 100 MCG/2 ML AMP IVP ONE ×2 (05:05→08:30)
[2018-08-22 05:19] LABS: PLATELET COUNT, AUTOMATED 198 K/uL (150-450)
[2018-08-22] MEDS ORDERED: LR IV ONE (05:35)
[2018-08-22] MEDS ORDERED: ONDA4TAB9 PO (06:09)
--- NOTE | 2018-08-22 08:28 | RADIOLOGY IMAGING REPORT ---
FACILITY: [facility] - [place] PATIENT NAME: Donna Arreola : 1945 MR: [id number] V: [id number] EXAM DATE: ORDERING PHYSICIAN: ALY VENCES TECHNOLOGIST: Location: [facility] Patient: Donna Arreola : 1945 Visit/Account:[id number] Date of Sevice: 08/22/2018 US ABD LIMITED ULTRASOUND EXAMINATION: Limited right upper quadrant ultrasound Additional Pertinent history: none COMPARISON STUDIES: CT abdomen and pelvis 07/05/2018. FINDINGS: Liver: Normal echotexture. Gallbladder: Normal wall thickness, no evidence of gallstone. Common duct: normal 3.0 mm. Pancreas: Visualized portions are normal. Right kidney: Normal. No hydronephrosis or mass. Proximal IVC/Aorta: negative IMPRESSION: Normal right upper quadrant ultrasound. No evidence of gallstone. Report Dictated By: Wu Trevino at 08/22/2018 8:16 AM Report E-Signed By: Wu Trevino at 08/22/2018 8:23 AM WSN:[id number]
[2018-08-22 08:30] VITALS: BP 129/55
[2018-08-22] MEDS ORDERED: LOR5/325 PO (08:32)
== END 2018-08-22 09:15 | disposition home or self-care (01) ==
LOC: ER 04:56
DX: R11.2 Nausea with vomiting, unspecified (principal); E86.0 Dehydration
CPT/HCPCS: 76705; 81001; 82150; 83605; 83690; 85025; 96361; 96374; 96375; 96376; 99284; J2405; J3010; J7030; J7120; 82040; 82247; 82310; 82374; 82435; 82565; 82947; 84075; 84132; 84155; 84295; 84450; 84460; 84520

== ENCOUNTER → 2018-10-16 | Outpatient (CLI) | payer MEDICARE, MEDICAID ==
[2017-05-13 12:54] VITALS: BMI 29.9
[~2018-10-16] MED LIST changes: +CLOB15OI16 TP; +FOSF3PAC3 PO; +HALO15OI15 TP; +INSU100V8 SUBQ; +ONDA4TAB9 PO
== END ==
LOC: LAB 09:46
PROVIDERS: ATTEND Obstetrics & Gynecology
DX: R30.0 Dysuria (principal); B96.20 Unspecified Escherichia coli [E. coli] as the cause of diseases classified elsewhere
CPT/HCPCS: 87077; 87088; 87186

== ENCOUNTER → 2018-10-26 | Outpatient (CLI) | payer MEDICARE, MEDICAID ==
[2017-05-13 12:54] VITALS: BMI 29.9
--- NOTE | 2018-10-26 16:07 | RADIOLOGY IMAGING REPORT ---
FACILITY: [facility] PATIENT NAME: Donna Arreola : 1945 MR: [id number] V: [id number] EXAM DATE: ORDERING PHYSICIAN: CHANDRIKA ZUNIGA TECHNOLOGIST: Location: [facility] - [place] Patient: Donna Arreola : 1945 Visit/Account:[id number] Date of Sevice: 10/26/2018 Exam type: FOOT 2 VIEW LEFT History: Pain on lateral side of left foot, prior fracture Comparison: July 15, 2017. Findings: There is an old healed fracture through the left fifth metatarsal. No evidence of acute fracture or dislocation seen. There is osteopenia present. A small left calcaneal spur. Extensive vascular talat cifications are seen throughout the left foot IMPRESSION: 1. Old healed left fifth metatarsal fracture Extensive vascular calcifications Report Dictated By: Jane Ochoa MD at 10/26/2018 3:57 PM Report E-Signed By: Jane Ochoa MD at 10/26/2018 3:59 PM WSN:[id number]
== END ==
LOC: RAD 13:31
PROVIDERS: ATTEND Family Medicine
DX: M79.672 Pain in left foot (principal)

== ENCOUNTER → 2018-10-27 | Outpatient (CLI) | payer MEDICARE, MEDICAID ==
[2017-05-13 12:54] VITALS: BMI 29.9
== END ==
LOC: LAB 08:54
PROVIDERS: ATTEND Internal Medicine Cardiovascular Disease
DX: I70.1 Atherosclerosis of renal artery (principal); E78.00 Pure hypercholesterolemia, unspecified; I10 Essential (primary) hypertension; I25.119 Atherosclerotic heart disease of native coronary artery with unspecified angina pectoris; I70.219 Atherosclerosis of native arteries of extremities with intermittent claudication, unspecified extremity; Z95.5 Presence of coronary angioplasty implant and graft
CPT/HCPCS: 36415; 82040; 82247; 82310; 82374; 82435; 82465; 82565; 82947; 83718; 84075; 84132; 84155; 84295; 84450; 84460; 84478; 84520; 85027